=== PATIENT | female | born 1940 | race Caucasian/White ===

== ENCOUNTER 2018-01-29 20:34 | Inpatient (IN) ==
[2018-01-29] MEDS ORDERED: ONDANSETRON 4 MG/2 ML VIAL IV STA (22:33)
[2018-01-29] MEDS ORDERED: PANTOPRAZOLE 40 MG VIAL IV STA (22:33)
[2018-01-29] MEDS ORDERED: SODIUM CHLORIDE 0.9% 500 ML IV STA (22:33)
[2018-01-29] MEDS ORDERED: HYDROmorphone 2 MG/1 ML VIAL IV STA (22:33)
[2018-01-29 22:43] LABS: Basophils % 0.6 % (0.0-0.8); Eosinophils # 0.2 10*3/uL (0.0-0.87); Eosinophils % 5.8 % (0.00-10.9); Hematocrit 37.2 VOL% (35.7-47.0); Hemoglobin 12.1 GM/DL (12.0-16.0); Lymphocytes % 28.3 % (21.3-54.2); Mean Corpuscular HGB Conc 32.5 GM/DL (32-36); Mean Corpuscular Hemoglobin 29 PG (27-34); Mean Corpuscular Volume 88.6 FL (87-102); Monocytes # 0.3 10*3/uL (0.11-0.8); Monocytes % 9.1 % (1.7-12.7); Neutrophils % 56.2 % (38.7-73.9); Red Cell Distribution Width 15.6 % (9.3-17.3); White Blood Count 3.6 T/CUMM (4-12)
[2018-01-29 22:50] LABS: Platelet Count 65 T/CUMM (130-400)
[2018-01-29 23:00] LABS: Lactic Acid 1.1 MMOL/L (0.4-2.0)
[2018-01-29 23:01] LABS: Alanine Aminotransferase 23 U/L (13-56); Albumin 3.2 G/DL (3.4-5.0); Alkaline Phosphatase 95 U/L (45-117); Amylase 33 U/L (25-115); Aspartate Amino Transferase 32 U/L (0-37); Blood Urea Nitrogen 9 MG/DL (7-18); Calcium 9.2 MG/DL (8.5-10.1); Glucose 94 MG/DL (74-106); Osmolality,Calculated 279.3 MOS/KG (273-304); Potassium 4.2 MMOL/L (3.5-5.1); Sodium 141 MMOL/L (136-145); Troponin I 0.018 NG/ML (0.00-0.045)
[2018-01-29] MEDS ORDERED: MEPERIDINE 25 MG/1 ML VIAL IV STA (23:19)
[2018-01-29 23:24] LABS: Apearance,Urine Slightly Hazy (Clear); Bacteria,Urine Occasional /HPF (Few); Bilirubin,Urine Negative (Negative); Blood, Urine Moderate mg/dL (Negative); Glucose,Urine (UA) Negative (Negative); Ketones,Urine Negative (Negative); Nitrite,Urine Negative (Negative); Protein,Urine Negative; RBC,Urine 2 /HPF (0-4); Squamous Epithelial Cell,Urine Occasional /HPF (0-10); Urine Color Straw (Yellow); Urine Specific Gravity 1.003 (1.001-1.035); Urine Urobilinogen < 2.0 EU/DL (0.2-1.0); WBC,Urine 106 /HPF (0-6)
[2018-01-29] MEDS ORDERED: cefTRIAXone 1,000 MG in SODIUM CHLORIDE 0.9% 100 ML IV STA (23:42)
[2018-01-30] MEDS ORDERED: ceFAZolin 1,000 MG VIAL ONE (00:13)
[2018-01-30] MEDS ORDERED: GLUCAGON 1 MG VIAL IM PRN (02:35)
[2018-01-30] MEDS ORDERED: ACETAMINOPHEN 325 MG TABLET PO PRN (02:35)
[2018-01-30] MEDS ORDERED: ONDANSETRON 4 MG/2 ML VIAL IV PRN (02:35)
[2018-01-30] MEDS ORDERED: ALBUTEROL/IPRATROPIUM 3 ML NEB RESP TX PRN (02:35)
[2018-01-30] MEDS ORDERED: DEXTROSE 50% 25 GM/50 ML VIAL IV PRN (02:35)
[2018-01-30] MEDS ORDERED: HYDROmorphone 2 MG/1 ML VIAL IV PRN (02:35)
[2018-01-30] MEDS: SODIUM CHLORIDE 0.9% 1,000 ML IV SCH (02:56)
[2018-01-30] MEDS: PIPERACILLIN/TAZOBACTAM 3,375 MG in SODIUM CHLORIDE 0.9% 100 ML IV SCH ×3 (02:56→17:41)
[2018-01-30 02:57] LABS: Basophils % 0.3 % (0.0-0.8); Eosinophils # 0.2 10*3/uL (0.0-0.87); Eosinophils % 5.6 % (0.00-10.9); Hematocrit 33.8 VOL% (35.7-47.0); Hemoglobin 10.8 GM/DL (12.0-16.0); Lymphocytes # 0.9 10*3/uL (1.4-4.0); Lymphocytes % 27.8 % (21.3-54.2); Mean Corpuscular Hemoglobin 29 PG (27-34); Mean Corpuscular Volume 89.2 FL (87-102); Monocytes # 0.3 10*3/uL (0.11-0.8); Monocytes % 10.5 % (1.7-12.7); Neutrophils # 1.8 10*3/uL (1.4-7.4); Neutrophils % 55.8 % (38.7-73.9); Red Blood Count 3.79 MC/CUMM (3.8-5.5); Red Cell Distribution Width 15.9 % (9.3-17.3); White Blood Count 3.2 T/CUMM (4-12)
[2018-01-30 03:00] LABS: Platelet Count 55 T/CUMM (130-400)
[2018-01-30 03:13] LABS: Ammonia 27 UMOL/L (11-32)
[2018-01-30 04:41] LABS: Hypochromasia 1+; Microcytosis 1+; Ovalocytes Slight
[2018-01-30 04:42] LABS: Platelet Estimate Decreased
[2018-01-30] MEDS: INSULIN REGULAR 100 UNIT/ML SUBCUT SCH ×3 (06:00→18:05)
[2018-01-30 06:13] LABS: Potassium 4.1 MMOL/L (3.5-5.1)
[2018-01-30 06:15] LABS: Calcium 8.7 MG/DL (8.5-10.1)
[2018-01-30 06:16] LABS: Albumin 2.7 G/DL (3.4-5.0)
[2018-01-30 06:17] LABS: Osmolality,Calculated 278.4 MOS/KG (273-304)
[2018-01-30 06:20] LABS: VLDL CHOLESTEROL 11.8 MG/DL
[2018-01-30 06:21] LABS: Bilirubin,Total 1.3 MG/DL (0.2-1.0); Total Protein 6.2 G/DL (6.4-8.3)
[2018-01-30 06:24] LABS: Risk Ratio 2.07
[2018-01-30] MEDS ORDERED: traZODone 50 MG TABLET PO PRN (09:30)
[2018-01-30] MEDS ORDERED: CARVEDILOL 3.125 MG TABLET PO PRN (09:30)
[2018-01-30] MEDS ORDERED: NITROGLYCERIN SL 0.4 MG TABLET SL PRN (09:30)
[2018-01-30] MEDS: DOCUSATE SODIUM 100 MG CAPSULE PO SCH ×2 (09:40→21:28)
[2018-01-30] MEDS: PANTOPRAZOLE 40 MG VIAL IV SCH (09:40)
[2018-01-30] MEDS: FUROSEMIDE 20 MG/2 ML VIAL IV SCH ×2 (09:45→17:37)
[2018-01-30] MEDS ORDERED: GLIMEPIRIDE 2 MG TABLET PO PRN (10:00)
[2018-01-30] MEDS: SIMVASTATIN 40 MG TABLET PO SCH (21:28)
[2018-01-30] MEDS: GABAPENTIN 300 MG CAPSULE PO SCH (21:28)
[2018-01-30] MEDS: POTASSIUM CHLORIDE 20 MEQ TABLET PO SCH (21:28)
[2018-01-30] MEDS: clonazePAM 0.5 MG TABLET PO SCH (21:29)
[2018-01-30] MEDS: MAGNESIUM CHLORIDE 64 MG TABLET PO SCH (21:29)
[2018-01-30] MEDS: NYSTATIN OINT 15 GM TUBE TOP SCH (21:34)
[2018-01-31] MEDS: INSULIN REGULAR 100 UNIT/ML SUBCUT SCH ×4 (00:26→18:25)
[2018-01-31] MEDS: PIPERACILLIN/TAZOBACTAM 3,375 MG in SODIUM CHLORIDE 0.9% 100 ML IV SCH ×3 (01:48→17:21)
[2018-01-31 05:40] LABS: Apearance,Urine CLEAR (Clear); Bacteria,Urine Occasional /HPF (Few); Bilirubin,Urine Negative (Negative); Blood, Urine Moderate mg/dL (Negative); Glucose,Urine (UA) Negative (Negative); Ketones,Urine Negative (Negative); Mucus,Urine Occasional /LPF (Occasional); Nitrite,Urine Negative (Negative); Protein,Urine Negative; RBC,Urine 5 /HPF (0-4); Squamous Epithelial Cell,Urine Occasional /HPF (0-10); Urine Color Yellow (Yellow); Urine Specific Gravity 1.013 (1.001-1.035); Urine Urobilinogen < 2.0 EU/DL (0.2-1.0); WBC,Urine 21 /HPF (0-6)
[2018-01-31 07:38] LABS: Basophils % 0.6 % (0.0-0.8); Eosinophils # 0.2 10*3/uL (0.0-0.87); Eosinophils % 6.6 % (0.00-10.9); Hematocrit 36.9 VOL% (35.7-47.0); Hemoglobin 11.8 GM/DL (12.0-16.0); Immature Granulocytes % 0.3 %; Immature Granulocytes Absolute 0.01 #; Lymphocytes # 0.8 10*3/uL (1.4-4.0); Lymphocytes % 24.1 % (21.3-54.2); Mean Corpuscular Hemoglobin 28 PG (27-34); Mean Corpuscular Volume 87.9 FL (87-102); Mean Platelet Volume 12.8 FL (9.6-12.0); Monocytes # 0.3 10*3/uL (0.11-0.8); Monocytes % 10.8 % (1.7-12.7); Neutrophils # 1.8 10*3/uL (1.4-7.4); Neutrophils % 57.6 % (38.7-73.9); Platelet Count 61 T/CUMM (130-400); Red Cell Distribution Width 15.9 % (9.3-17.3); White Blood Count 3.2 T/CUMM (4-12)
[2018-01-31 08:00] LABS: Hypochromasia 1+; Ovalocytes Slight; Platelet Estimate Decreased
[2018-01-31 08:01] LABS: Microcytosis Slight
[2018-01-31] MEDS: SPIRONOLACTONE 25 MG TABLET PO SCH (09:14)
[2018-01-31] MEDS: LOSARTAN 25 MG TABLET PO SCH (09:14)
[2018-01-31] MEDS: ISOSORBIDE MONONITRATE 30 MG TABLET PO SCH (09:14)
[2018-01-31] MEDS: DOCUSATE SODIUM 100 MG CAPSULE PO SCH ×2 (09:14→21:32)
[2018-01-31] MEDS: POTASSIUM CHLORIDE 20 MEQ TABLET PO SCH ×2 (09:14→21:32)
[2018-01-31] MEDS: PANTOPRAZOLE 40 MG VIAL IV SCH (09:15)
[2018-01-31] MEDS: NYSTATIN OINT 15 GM TUBE TOP SCH ×2 (09:19→23:13)
[2018-01-31] MEDS: FUROSEMIDE 40 MG TABLET PO SCH (15:12)
[2018-01-31] MEDS: GABAPENTIN 300 MG CAPSULE PO SCH (21:32)
[2018-01-31] MEDS: SIMVASTATIN 40 MG TABLET PO SCH (21:32)
[2018-01-31] MEDS: clonazePAM 0.5 MG TABLET PO SCH (21:32)
[2018-01-31] MEDS: MAGNESIUM CHLORIDE 64 MG TABLET PO SCH (21:32)
[2018-02-01] MEDS: PIPERACILLIN/TAZOBACTAM 3,375 MG in SODIUM CHLORIDE 0.9% 100 ML IV SCH ×3 (01:56→17:48)
[2018-02-01] MEDS: INSULIN REGULAR 100 UNIT/ML SUBCUT SCH ×4 (01:57→17:18)
[2018-02-01 04:59] LABS: Basophils % 0.6 % (0.0-0.8); Eosinophils # 0.2 10*3/uL (0.0-0.87); Hemoglobin 11.1 GM/DL (12.0-16.0); Immature Granulocytes % 0.3 %; Immature Granulocytes Absolute 0.01 #; Lymphocytes # 0.8 10*3/uL (1.4-4.0); Lymphocytes % 23.9 % (21.3-54.2); Mean Corpuscular HGB Conc 31.7 GM/DL (32-36); Mean Corpuscular Hemoglobin 29 PG (27-34); Mean Corpuscular Volume 90.2 FL (87-102); Mean Platelet Volume 12.5 FL (9.6-12.0); Monocytes # 0.4 10*3/uL (0.11-0.8); Monocytes % 11.3 % (1.7-12.7); Neutrophils # 1.8 10*3/uL (1.4-7.4); Neutrophils % 57.9 % (38.7-73.9); Red Blood Count 3.88 MC/CUMM (3.8-5.5); Red Cell Distribution Width 15.8 % (9.3-17.3); White Blood Count 3.2 T/CUMM (4-12)
[2018-02-01 05:00] LABS: INR 1.4; PT Patient Result 14.2 SECS
[2018-02-01 05:02] LABS: Platelet Count 52 T/CUMM (130-400)
[2018-02-01 05:29] LABS: Acanthocytes 1+; Hypochromasia 1+; Ovalocytes Few; Platelet Estimate Decreased
[2018-02-01] MEDS ORDERED: SODIUM CHLORIDE 0.9% 1,000 ML IV PRN (07:24)
[2018-02-01] MEDS: SODIUM CHLORIDE 0.9% 1,000 ML IV SCH (08:06)
[2018-02-01] MEDS: LOSARTAN 25 MG TABLET PO SCH (08:28)
[2018-02-01] MEDS: SPIRONOLACTONE 25 MG TABLET PO SCH (08:28)
[2018-02-01] MEDS: POTASSIUM CHLORIDE 20 MEQ TABLET PO SCH ×2 (08:28→20:57)
[2018-02-01] MEDS: PANTOPRAZOLE 40 MG VIAL IV SCH (08:28)
[2018-02-01] MEDS: DOCUSATE SODIUM 100 MG CAPSULE PO SCH ×2 (08:28→20:57)
[2018-02-01] MEDS: ISOSORBIDE MONONITRATE 30 MG TABLET PO SCH (08:28)
[2018-02-01] MEDS: NYSTATIN OINT 15 GM TUBE TOP SCH ×2 (09:22→20:57)
[2018-02-01 09:50] LABS: Basophils % 0.6 % (0.0-0.8); Eosinophils # 0.2 10*3/uL (0.0-0.87); Hematocrit 36.6 VOL% (35.7-47.0); Hemoglobin 11.8 GM/DL (12.0-16.0); Lymphocytes # 0.9 10*3/uL (1.4-4.0); Lymphocytes % 26.7 % (21.3-54.2); Mean Corpuscular HGB Conc 32.2 GM/DL (32-36); Mean Corpuscular Hemoglobin 28 PG (27-34); Mean Corpuscular Volume 87.6 FL (87-102); Mean Platelet Volume 12.7 FL (9.6-12.0); Monocytes # 0.4 10*3/uL (0.11-0.8); Monocytes % 10.9 % (1.7-12.7); Neutrophils # 1.9 10*3/uL (1.4-7.4); Neutrophils % 54.8 % (38.7-73.9); Red Blood Count 4.18 MC/CUMM (3.8-5.5); Red Cell Distribution Width 15.9 % (9.3-17.3); White Blood Count 3.4 T/CUMM (4-12)
[2018-02-01 09:53] LABS: Platelet Count 55 T/CUMM (130-400)
[2018-02-01 10:35] LABS: Platelet Estimate Decreased
[2018-02-01] MEDS ORDERED: DIAZEPAM 5 MG TABLET PO ONE (11:00)
[2018-02-01] MEDS: FUROSEMIDE 40 MG TABLET PO SCH (15:36)
[2018-02-01] MEDS: clonazePAM 0.5 MG TABLET PO SCH (20:57)
[2018-02-01] MEDS: GABAPENTIN 300 MG CAPSULE PO SCH (20:57)
[2018-02-01] MEDS: MAGNESIUM CHLORIDE 64 MG TABLET PO SCH (20:57)
[2018-02-01] MEDS: SIMVASTATIN 40 MG TABLET PO SCH (20:57)
[2018-02-02] MEDS: INSULIN REGULAR 100 UNIT/ML SUBCUT SCH ×2 (02:20→06:33)
[2018-02-02] MEDS: PIPERACILLIN/TAZOBACTAM 3,375 MG in SODIUM CHLORIDE 0.9% 100 ML IV SCH ×2 (02:28→08:49)
[2018-02-02] MEDS: SPIRONOLACTONE 25 MG TABLET PO SCH (08:50)
[2018-02-02] MEDS: DOCUSATE SODIUM 100 MG CAPSULE PO SCH (08:50)
[2018-02-02] MEDS: PANTOPRAZOLE 40 MG VIAL IV SCH (08:50)
[2018-02-02] MEDS: LOSARTAN 25 MG TABLET PO SCH (08:51)
[2018-02-02] MEDS: ISOSORBIDE MONONITRATE 30 MG TABLET PO SCH (08:51)
[2018-02-02] MEDS: POTASSIUM CHLORIDE 20 MEQ TABLET PO SCH (08:51)
[2018-02-02 09:37] VITALS: BP 142/62
[2018-02-02] MEDS: NYSTATIN OINT 15 GM TUBE TOP SCH (12:48)
== END 2018-02-02 11:30 | disposition home or self-care (01) | DRG 394 ==
LOC: N.ED 20:34 → N.EDINP 01-30 01:43 → N.2E 01-30 02:08
PROVIDERS: ADMIT Family Medicine; ATTEND Family Medicine

== ENCOUNTER 2018-03-20 15:19 | Inpatient (IN) ==
[2018-03-20] MEDS ORDERED: DICYCLOMINE 20 MG/2 ML AMP IM ONE (16:07)
[2018-03-20] MEDS ORDERED: PANTOPRAZOLE 40 MG VIAL IV STA (16:07)
[2018-03-20] MEDS ORDERED: SODIUM CHLORIDE 0.9% 500 ML IV STA (16:07)
[2018-03-20] MEDS ORDERED: METOCLOPRAMIDE 10 MG/2 ML VIAL IV STA (16:07)
[2018-03-20 17:22] LABS: Basophils % 0.4 % (0.0-0.8); Eosinophils # 0.1 10*3/uL (0.0-0.87); Eosinophils % 5.9 % (0.00-10.9); Hematocrit 33.2 VOL% (35.7-47.0); Hemoglobin 10.6 GM/DL (12.0-16.0); Lymphocytes # 0.7 10*3/uL (1.4-4.0); Lymphocytes % 28.5 % (21.3-54.2); Mean Corpuscular HGB Conc 31.9 GM/DL (32-36); Mean Corpuscular Hemoglobin 29 PG (27-34); Monocytes # 0.3 10*3/uL (0.11-0.8); Monocytes % 10.5 % (1.7-12.7); Neutrophils # 1.3 10*3/uL (1.4-7.4); Neutrophils % 54.7 % (38.7-73.9); Platelet Count 48 T/CUMM (130-400); Red Blood Count 3.69 MC/CUMM (3.8-5.5); Red Cell Distribution Width 15.2 % (9.3-17.3); White Blood Count 2.4 T/CUMM (4-12)
[2018-03-20 17:27] LABS: Apearance,Urine CLEAR (Clear); Bilirubin,Urine Negative (Negative); Blood, Urine Small mg/dL (Negative); Glucose,Urine (UA) Negative (Negative); Ketones,Urine Negative (Negative); Nitrite,Urine Positive (Negative); Protein,Urine Negative; RBC,Urine 4 /HPF (0-4); Squamous Epithelial Cell,Urine Occasional /HPF (0-10); Urine Color Yellow (Yellow); Urine Specific Gravity 1.029 (1.001-1.035); WBC,Urine 10 /HPF (0-6)
[2018-03-20 17:31] LABS: INR 1.2; PT Patient Result 12.7 SECS; Partial Thromboplastin Time 27.2 SECS (0-40)
[2018-03-20 17:47] LABS: Alanine Aminotransferase 22 U/L (13-56); Albumin 2.8 G/DL (3.4-5.0); Alkaline Phosphatase 113 U/L (45-117); Aspartate Amino Transferase 28 U/L (0-37); Blood Urea Nitrogen 12 MG/DL (7-18); Calcium 8.7 MG/DL (8.5-10.1); Glucose 99 MG/DL (74-106); Osmolality,Calculated 276.5 MOS/KG (273-304); Potassium 4.4 MMOL/L (3.5-5.1); Sodium 139 MMOL/L (136-145); Total Protein 6.4 G/DL (6.4-8.3); Troponin I < 0.015 NG/ML (0.00-0.045)
[2018-03-20] MEDS ORDERED: AMPICILLIN/SULBACTAM 3,000 MG in SODIUM CHLORIDE 0.9% 100 ML IV STA (17:51)
[2018-03-20] MEDS ORDERED: ACETAMINOPHEN 325 MG TABLET PO PRN (19:47)
[2018-03-20] MEDS ORDERED: GLUCAGON 1 MG VIAL IM PRN (19:47)
[2018-03-20] MEDS ORDERED: ONDANSETRON 4 MG/2 ML VIAL IV PRN (19:47)
[2018-03-20] MEDS ORDERED: DEXTROSE 50% 25 GM/50 ML VIAL IV PRN (19:47)
[2018-03-20] MEDS: INSULIN REGULAR 100 UNIT/ML SUBCUT SCH (21:06)
[2018-03-20] MEDS: traZODone 50 MG TABLET PO SCH (21:06)
[2018-03-21 06:03] LABS: Basophils % 0.2 % (0.0-0.8); Eosinophils # 0.2 10*3/uL (0.0-0.87); Eosinophils % 5.4 % (0.00-10.9); Hematocrit 35.7 VOL% (35.7-47.0); Hemoglobin 11.2 GM/DL (12.0-16.0); Immature Granulocytes % 0.2 %; Immature Granulocytes Absolute 0.01 #; Lymphocytes # 0.7 10*3/uL (1.4-4.0); Lymphocytes % 18.1 % (21.3-54.2); Mean Corpuscular HGB Conc 31.4 GM/DL (32-36); Mean Corpuscular Hemoglobin 28 PG (27-34); Mean Corpuscular Volume 89.3 FL (87-102); Monocytes # 0.3 10*3/uL (0.11-0.8); Monocytes % 8.4 % (1.7-12.7); Neutrophils # 2.7 10*3/uL (1.4-7.4); Neutrophils % 67.7 % (38.7-73.9); Platelet Count 61 T/CUMM (130-400); Red Cell Distribution Width 15.2 % (9.3-17.3)
[2018-03-21 06:31] LABS: Osmolality,Calculated 279.3 MOS/KG (273-304); Potassium 4.3 MMOL/L (3.5-5.1)
[2018-03-21 06:37] LABS: Eosinophils 4 % (0-10); Hypochromasia 1+; Lymphocytes 14 % (20-55); Segmented Neutrophils 74 % (50-85); Total Cells Counted 100
[2018-03-21 06:38] LABS: Microcytosis 1+; Ovalocytes Slight; Platelet Estimate Decreased
[2018-03-21] MEDS ORDERED: CARVEDILOL 3.125 MG TABLET PO PRN (07:38)
[2018-03-21] MEDS ORDERED: NITROGLYCERIN SL 0.4 MG TABLET SL PRN (07:38)
[2018-03-21] MEDS ORDERED: GLIMEPIRIDE 2 MG TABLET PO PRN (07:38)
[2018-03-21] MEDS ORDERED: LACTULOSE 20 GM/30 ML UDCUP PO PRN (07:42)
[2018-03-21] MEDS: MULTIVITAMIN (CENTRUM) TABLET PO SCH (08:45)
[2018-03-21] MEDS: SPIRONOLACTONE 25 MG TABLET PO SCH (08:46)
[2018-03-21] MEDS: PANTOPRAZOLE 40 MG TABLET PO SCH (08:47)
[2018-03-21] MEDS: GLIMEPIRIDE 2 MG TABLET PO SCH (08:47)
[2018-03-21] MEDS: LOSARTAN 25 MG TABLET PO SCH (08:47)
[2018-03-21] MEDS: ISOSORBIDE MONONITRATE 30 MG TABLET PO SCH (08:47)
[2018-03-21] MEDS: POTASSIUM CHLORIDE 20 MEQ TABLET PO SCH ×2 (08:47→21:21)
[2018-03-21] MEDS: INSULIN REGULAR 100 UNIT/ML SUBCUT SCH ×4 (08:47→21:21)
[2018-03-21] MEDS ORDERED: FUROSEMIDE 40 MG TABLET PO SCH (13:00)
[2018-03-21] MEDS ORDERED: cefTRIAXone 1,000 MG in SYRINGE 1 EACH IV SCH (16:00)
[2018-03-21] MEDS ORDERED: GABAPENTIN 300 MG CAPSULE PO SCH (21:00)
[2018-03-21] MEDS ORDERED: clonazePAM 0.5 MG TABLET PO SCH (21:00)
[2018-03-21] MEDS ORDERED: MAGNESIUM CHLORIDE 64 MG TABLET PO SCH (21:00)
[2018-03-21] MEDS: traZODone 50 MG TABLET PO SCH (21:21)
[2018-03-22 08:02] VITALS: BP 155/63
[2018-03-22] MEDS: PANTOPRAZOLE 40 MG TABLET PO SCH (08:44)
[2018-03-22] MEDS: MULTIVITAMIN (CENTRUM) TABLET PO SCH (08:44)
[2018-03-22] MEDS: POTASSIUM CHLORIDE 20 MEQ TABLET PO SCH (08:44)
[2018-03-22] MEDS: ISOSORBIDE MONONITRATE 30 MG TABLET PO SCH (08:44)
[2018-03-22] MEDS: LOSARTAN 25 MG TABLET PO SCH (08:44)
[2018-03-22] MEDS: INSULIN REGULAR 100 UNIT/ML SUBCUT SCH (08:45)
[2018-03-22] MEDS: SPIRONOLACTONE 25 MG TABLET PO SCH (08:45)
[2018-03-22] MEDS: GLIMEPIRIDE 2 MG TABLET PO SCH (08:45)
== END 2018-03-22 10:50 | disposition home or self-care (01) | DRG 378 ==
LOC: N.ED 15:19 → N.EDINP 18:11 → N.5E 19:21
PROVIDERS: ADMIT Family Medicine; ATTEND Family Medicine

== ENCOUNTER 2018-06-07 13:29 | Inpatient (IN) ==
[2018-06-07] MEDS ORDERED: ONDANSETRON 4 MG/2 ML VIAL IV STA (13:51)
[2018-06-07] MEDS ORDERED: HYDROmorphone 2 MG/1 ML VIAL IV STA (13:51)
[2018-06-07 13:58] LABS: Basophils % 0.3 % (0.0-0.8); Eosinophils # 0.1 10*3/uL (0.0-0.87); Eosinophils % 2.1 % (0.00-10.9); Hematocrit 31.5 VOL% (35.7-47.0); Hemoglobin 9.9 GM/DL (12.0-16.0); Immature Granulocytes % 0.7 %; Immature Granulocytes Absolute 0.02 #; Lymphocytes # 0.5 10*3/uL (1.4-4.0); Lymphocytes % 15.8 % (21.3-54.2); Mean Corpuscular HGB Conc 31.4 GM/DL (32-36); Mean Corpuscular Hemoglobin 27 PG (27-34); Mean Corpuscular Volume 87.3 FL (87-102); Mean Platelet Volume 12.3 FL (9.6-12.0); Monocytes # 0.2 10*3/uL (0.11-0.8); Monocytes % 6.9 % (1.7-12.7); Neutrophils # 2.2 10*3/uL (1.4-7.4); Neutrophils % 74.2 % (38.7-73.9); Platelet Count 71 T/CUMM (130-400); Red Blood Count 3.61 MC/CUMM (3.8-5.5); Red Cell Distribution Width 15.1 % (9.3-17.3); White Blood Count 2.9 T/CUMM (4-12)
[2018-06-07 14:03] LABS: INR 1.2; PT Patient Result 12.9 SECS
[2018-06-07 14:15] LABS: Albumin 3.1 G/DL (3.4-5.0); Bilirubin,Total 0.9 MG/DL (0.2-1.0); Calcium 9.1 MG/DL (8.5-10.1); Osmolality,Calculated 268.4 MOS/KG (273-304); Potassium 4.9 MMOL/L (3.5-5.1); Total Protein 6.7 G/DL (6.4-8.3)
[2018-06-07] MEDS ORDERED: PROMETHAZINE 25 MG/1 ML VIAL IM STA (15:00)
[2018-06-07 15:24] LABS: Apearance,Urine CLEAR (Clear); Bacteria,Urine Occasional /HPF (Few); Bilirubin,Urine Negative (Negative); Blood, Urine Small mg/dL (Negative); Glucose,Urine (UA) Negative (Negative); Hyaline Casts,Urine 1 /LPF (0-3); Ketones,Urine 5 mg/dL (Negative); Mucus,Urine Occasional /LPF (Occasional); Nitrite,Urine Negative (Negative); Protein,Urine 30 MG/DL; RBC,Urine 5 /HPF (0-4); Squamous Epithelial Cell,Urine Occasional /HPF (0-10); Urine Color Yellow (Yellow); Urine Specific Gravity 1.018 (1.001-1.035); WBC,Urine 2 /HPF (0-6)
[2018-06-07 15:30] LABS: Anisocytosis Slight; Hypochromasia 1+
[2018-06-07 15:31] LABS: Microcytosis Slight; Platelet Estimate Decreased
[2018-06-07] MEDS ORDERED: HYDROmorphone 2 MG/1 ML VIAL IV PRN (16:30)
[2018-06-07] MEDS ORDERED: GLUCAGON 1 MG VIAL IM PRN (16:30)
[2018-06-07] MEDS ORDERED: ACETAMINOPHEN 325 MG TABLET PO PRN (16:30)
[2018-06-07] MEDS ORDERED: DEXTROSE 50% 25 GM/50 ML SYRINGE IV PRN (16:30)
[2018-06-07] MEDS ORDERED: CARVEDILOL 3.125 MG TABLET PO PRN (17:34)
[2018-06-07] MEDS ORDERED: NITROGLYCERIN SL 0.4 MG TABLET SL PRN (17:34)
[2018-06-07] MEDS ORDERED: GLIMEPIRIDE 2 MG TABLET PO PRN (17:34)
[2018-06-07] MEDS: SODIUM CHLORIDE 0.9% 1,000 ML IV SCH (17:42)
[2018-06-07] MEDS: INSULIN REGULAR 100 UNIT/ML SUBCUT SCH (18:37)
[2018-06-07] MEDS: DOCUSATE SODIUM 100 MG CAPSULE PO SCH (21:35)
[2018-06-07] MEDS: MAGNESIUM CHLORIDE 64 MG TABLET PO SCH (21:36)
[2018-06-07] MEDS: traZODone 50 MG TABLET PO SCH (21:36)
[2018-06-07] MEDS: POTASSIUM CHLORIDE 20 MEQ TABLET PO SCH (21:37)
[2018-06-07] MEDS: GABAPENTIN 300 MG CAPSULE PO SCH (21:37)
[2018-06-08] MEDS: INSULIN REGULAR 100 UNIT/ML SUBCUT SCH ×4 (00:37→18:34)
[2018-06-08 05:12] LABS: Basophils % 0.2 % (0.0-0.8); Eosinophils # 0.1 10*3/uL (0.0-0.87); Eosinophils % 1.9 % (0.00-10.9); Hematocrit 31.1 VOL% (35.7-47.0); Hemoglobin 9.4 GM/DL (12.0-16.0); Lymphocytes # 0.7 10*3/uL (1.4-4.0); Lymphocytes % 17.2 % (21.3-54.2); Mean Corpuscular HGB Conc 30.2 GM/DL (32-36); Mean Corpuscular Hemoglobin 27 PG (27-34); Mean Corpuscular Volume 90.1 FL (87-102); Mean Platelet Volume 11.9 FL (9.6-12.0); Monocytes # 0.5 10*3/uL (0.11-0.8); Monocytes % 11.9 % (1.7-12.7); Neutrophils # 2.9 10*3/uL (1.4-7.4); Neutrophils % 68.8 % (38.7-73.9); Red Blood Count 3.45 MC/CUMM (3.8-5.5); Red Cell Distribution Width 14.9 % (9.3-17.3)
[2018-06-08 05:18] LABS: Platelet Count 68 T/CUMM (130-400); White Blood Count 4.2 T/CUMM (4-12)
[2018-06-08 05:23] LABS: Albumin 2.8 G/DL (3.4-5.0); Bilirubin,Total 1.1 MG/DL (0.2-1.0); Calcium 8.6 MG/DL (8.5-10.1); Osmolality,Calculated 267.4 MOS/KG (273-304); Total Protein 6.1 G/DL (6.4-8.3)
[2018-06-08 05:32] LABS: Hypochromasia 1+; Microcytosis Slight; Ovalocytes Slight; Platelet Estimate Decreased
[2018-06-08] MEDS: SODIUM CHLORIDE 0.9% 1,000 ML IV SCH (06:13)
[2018-06-08] MEDS ORDERED: ceFAZolin 2,000 MG in PREMIX 1 EACH IV ONE (07:00)
[2018-06-08] MEDS: ISOSORBIDE MONONITRATE 30 MG TABLET PO SCH (08:14)
[2018-06-08] MEDS: LOSARTAN 25 MG TABLET PO SCH (08:14)
[2018-06-08] MEDS ORDERED: BACITRACIN OINT 0.9 GM PACK TOP ONE (08:27)
[2018-06-08] MEDS ORDERED: PANTOPRAZOLE 40 MG VIAL IV SCH (09:00)
[2018-06-08] MEDS: MULTIVITAMIN (CENTRUM) TABLET PO SCH (09:38)
[2018-06-08] MEDS: SPIRONOLACTONE 25 MG TABLET PO SCH (09:38)
[2018-06-08] MEDS: DOCUSATE SODIUM 100 MG CAPSULE PO SCH ×2 (09:38→21:33)
[2018-06-08] MEDS: POTASSIUM CHLORIDE 20 MEQ TABLET PO SCH ×2 (09:39→21:32)
[2018-06-08] MEDS: PANTOPRAZOLE 40 MG TABLET PO SCH ×2 (09:39→15:31)
[2018-06-08] MEDS ORDERED: ePHEDrine 50 MG/ML AMP ONE (12:16)
[2018-06-08] MEDS ORDERED: fentaNYL 100 MCG/2 ML VIAL ONE (12:16)
[2018-06-08] MEDS ORDERED: oxyCODONE IR 5 MG TABLET PO PRN (12:31)
[2018-06-08] MEDS ORDERED: MAGNESIUM HYDROXIDE SUSP 30 ML UDCUP PO PRN (12:31)
[2018-06-08] MEDS ORDERED: GLYCOPYRROLATE 0.4 MG/2 ML VIAL ONE (13:00)
[2018-06-08] MEDS ORDERED: PROPOFOL 200 MG/20 ML VIAL IV ONE (13:00)
[2018-06-08] MEDS ORDERED: SEVOFLURANE 1 UNIT/15 MINUTE INH ONE (13:00)
[2018-06-08] MEDS ORDERED: ONDANSETRON 4 MG/2 ML VIAL ONE ×2 (13:00→13:22)
[2018-06-08] MEDS ORDERED: PHENYLEPHRINE 1 MG/10 ML SYRINGE IV ONE (13:01)
[2018-06-08] MEDS ORDERED: ROCURONIUM 100 MG/10 ML VIAL IV ONE (13:01)
[2018-06-08] MEDS ORDERED: NEOSTIGMINE 10 MG/10 ML VIAL ONE (13:01)
[2018-06-08] MEDS ORDERED: SODIUM CHLORIDE 0.9% 1,000 ML IV ONE (13:01)
[2018-06-08] MEDS: ONDANSETRON 4 MG/2 ML VIAL IV PRN (13:24)
[2018-06-08] MEDS: FUROSEMIDE 20 MG TABLET PO SCH (13:47)
[2018-06-08] MEDS: ALUMINUM/MAGNES/SIMETH MAX STR 30 ML UDCUP PO PRN (16:23)
[2018-06-08] MEDS: ceFAZolin 2,000 MG in PREMIX 1 EACH IV SCH (17:25)
[2018-06-08] MEDS ORDERED: ASPIRIN EC 81 MG TABLET PO SCH (17:34)
[2018-06-08] MEDS: MAGNESIUM CHLORIDE 64 MG TABLET PO SCH (21:32)
[2018-06-08] MEDS: GABAPENTIN 300 MG CAPSULE PO SCH (21:33)
[2018-06-08] MEDS: traZODone 50 MG TABLET PO SCH (21:33)
[2018-06-09] MEDS: ALUMINUM/MAGNES/SIMETH MAX STR 30 ML UDCUP PO PRN (00:12)
[2018-06-09] MEDS: ONDANSETRON 4 MG/2 ML VIAL IV PRN ×2 (00:15→05:17)
[2018-06-09] MEDS: ceFAZolin 2,000 MG in PREMIX 1 EACH IV SCH (00:17)
[2018-06-09] MEDS: INSULIN REGULAR 100 UNIT/ML SUBCUT SCH ×4 (00:17→18:22)
[2018-06-09 06:45] LABS: Basophils % 0.2 % (0.0-0.8); Eosinophils # 0.1 10*3/uL (0.0-0.87); Hematocrit 28.5 VOL% (35.7-47.0); Hemoglobin 8.7 GM/DL (12.0-16.0); Immature Granulocytes % 0.5 %; Immature Granulocytes Absolute 0.03 #; Lymphocytes # 0.6 10*3/uL (1.4-4.0); Lymphocytes % 9.8 % (21.3-54.2); Mean Corpuscular HGB Conc 30.5 GM/DL (32-36); Mean Corpuscular Hemoglobin 27 PG (27-34); Mean Corpuscular Volume 89.6 FL (87-102); Mean Platelet Volume 12.1 FL (9.6-12.0); Monocytes # 0.7 10*3/uL (0.11-0.8); Monocytes % 11.7 % (1.7-12.7); Neutrophils # 4.5 10*3/uL (1.4-7.4); Neutrophils % 76.8 % (38.7-73.9); Platelet Count 74 T/CUMM (130-400); Red Blood Count 3.18 MC/CUMM (3.8-5.5); Red Cell Distribution Width 14.9 % (9.3-17.3); White Blood Count 5.8 T/CUMM (4-12)
[2018-06-09 07:13] LABS: Calcium 7.9 MG/DL (8.5-10.1); Potassium 4.6 MMOL/L (3.5-5.1)
[2018-06-09] MEDS: DOCUSATE SODIUM 100 MG CAPSULE PO SCH ×2 (08:26→21:59)
[2018-06-09] MEDS: SPIRONOLACTONE 25 MG TABLET PO SCH (08:26)
[2018-06-09] MEDS: POTASSIUM CHLORIDE 20 MEQ TABLET PO SCH ×2 (08:26→21:59)
[2018-06-09] MEDS: LOSARTAN 25 MG TABLET PO SCH (08:26)
[2018-06-09] MEDS: ISOSORBIDE MONONITRATE 30 MG TABLET PO SCH (08:26)
[2018-06-09] MEDS: MULTIVITAMIN (CENTRUM) TABLET PO SCH (08:26)
[2018-06-09] MEDS: PANTOPRAZOLE 40 MG TABLET PO SCH (08:27)
[2018-06-09 10:03] LABS: Eosinophils 1 % (0-10); Lymphocytes 8 % (20-55); Platelet Estimate Decreased; Polychromasia Slight; Segmented Neutrophils 86 % (50-85); Total Cells Counted 100
[2018-06-09] MEDS: FUROSEMIDE 20 MG TABLET PO SCH (13:19)
[2018-06-09] MEDS: GABAPENTIN 300 MG CAPSULE PO SCH (21:58)
[2018-06-09] MEDS: MAGNESIUM CHLORIDE 64 MG TABLET PO SCH (21:59)
[2018-06-09] MEDS: traZODone 50 MG TABLET PO SCH (21:59)
[2018-06-09] MEDS: oxyCODONE IR 5 MG TABLET PO PRN (21:59)
[2018-06-10] MEDS: INSULIN REGULAR 100 UNIT/ML SUBCUT SCH ×4 (00:14→18:26)
[2018-06-10] MEDS: SODIUM CHLORIDE 0.9% 1,000 ML IV SCH ×2 (03:05→03:28)
[2018-06-10 07:15] LABS: Basophils % 0.2 % (0.0-0.8); Eosinophils # 0.2 10*3/uL (0.0-0.87); Eosinophils % 3.8 % (0.00-10.9); Hematocrit 26.7 VOL% (35.7-47.0); Hemoglobin 8.1 GM/DL (12.0-16.0); Immature Granulocytes % 0.3 %; Immature Granulocytes Absolute 0.02 #; Lymphocytes # 0.7 10*3/uL (1.4-4.0); Lymphocytes % 12.6 % (21.3-54.2); Mean Corpuscular HGB Conc 30.3 GM/DL (32-36); Mean Corpuscular Hemoglobin 27 PG (27-34); Mean Corpuscular Volume 89.6 FL (87-102); Mean Platelet Volume 11.9 FL (9.6-12.0); Monocytes # 0.4 10*3/uL (0.11-0.8); Monocytes % 7.6 % (1.7-12.7); Neutrophils # 4.4 10*3/uL (1.4-7.4); Neutrophils % 75.5 % (38.7-73.9); Red Blood Count 2.98 MC/CUMM (3.8-5.5); Red Cell Distribution Width 15.3 % (9.3-17.3); White Blood Count 5.8 T/CUMM (4-12)
[2018-06-10 07:18] LABS: Platelet Count 72 T/CUMM (130-400)
[2018-06-10] MEDS ORDERED: BENZOCAINE/MENTHOL LOZENGE 18/BOX PO PRN (07:34)
[2018-06-10 07:35] LABS: Calcium 7.7 MG/DL (8.5-10.1); Osmolality,Calculated 267.5 MOS/KG (273-304); Potassium 5.5 MMOL/L (3.5-5.1)
[2018-06-10] MEDS: DOCUSATE SODIUM 100 MG CAPSULE PO SCH ×2 (08:53→21:24)
[2018-06-10] MEDS: MULTIVITAMIN (CENTRUM) TABLET PO SCH (08:53)
[2018-06-10] MEDS: SPIRONOLACTONE 25 MG TABLET PO SCH (08:53)
[2018-06-10] MEDS: LOSARTAN 25 MG TABLET PO SCH (08:53)
[2018-06-10] MEDS: ISOSORBIDE MONONITRATE 30 MG TABLET PO SCH (08:53)
[2018-06-10] MEDS: POTASSIUM CHLORIDE 20 MEQ TABLET PO SCH (08:54)
[2018-06-10] MEDS: PANTOPRAZOLE 40 MG TABLET PO SCH (08:54)
[2018-06-10] MEDS: ONDANSETRON 4 MG/2 ML VIAL IV PRN (13:42)
[2018-06-10] MEDS: oxyCODONE IR 5 MG TABLET PO PRN (13:42)
[2018-06-10] MEDS: FUROSEMIDE 20 MG TABLET PO SCH (14:55)
[2018-06-10] MEDS: MAGNESIUM CHLORIDE 64 MG TABLET PO SCH (21:23)
[2018-06-10] MEDS: GABAPENTIN 300 MG CAPSULE PO SCH (21:24)
[2018-06-10] MEDS: traZODone 50 MG TABLET PO SCH (21:24)
[2018-06-10] MEDS ORDERED: SODIUM CHLORIDE 0.9% 1,000 ML IV PRN (22:05)
[2018-06-11] MEDS: INSULIN REGULAR 100 UNIT/ML SUBCUT SCH ×4 (01:22→19:00)
[2018-06-11] MEDS: MULTIVITAMIN (CENTRUM) TABLET PO SCH (09:49)
[2018-06-11] MEDS: ISOSORBIDE MONONITRATE 30 MG TABLET PO SCH (09:50)
[2018-06-11] MEDS: PANTOPRAZOLE 40 MG TABLET PO SCH (09:50)
[2018-06-11] MEDS: LOSARTAN 25 MG TABLET PO SCH (09:50)
[2018-06-11] MEDS: DOCUSATE SODIUM 100 MG CAPSULE PO SCH ×2 (09:50→20:52)
[2018-06-11 10:34] LABS: Basophils % 0.3 % (0.0-0.8); Eosinophils # 0.3 10*3/uL (0.0-0.87); Eosinophils % 4.2 % (0.00-10.9); Hematocrit 34.1 VOL% (35.7-47.0); Immature Granulocytes % 0.5 %; Immature Granulocytes Absolute 0.03 #; Lymphocytes # 0.7 10*3/uL (1.4-4.0); Lymphocytes % 10.8 % (21.3-54.2); Mean Corpuscular HGB Conc 30.5 GM/DL (32-36); Mean Corpuscular Hemoglobin 27 PG (27-34); Mean Corpuscular Volume 89.5 FL (87-102); Mean Platelet Volume 11.6 FL (9.6-12.0); Monocytes # 0.7 10*3/uL (0.11-0.8); Monocytes % 11.1 % (1.7-12.7); Neutrophils # 4.7 10*3/uL (1.4-7.4); Neutrophils % 73.1 % (38.7-73.9); Red Cell Distribution Width 15.7 % (9.3-17.3); White Blood Count 6.4 T/CUMM (4-12)
[2018-06-11 10:38] LABS: Red Blood Count 3.81 MC/CUMM (3.8-5.5)
[2018-06-11 10:39] LABS: Hemoglobin 10.4 GM/DL (12.0-16.0); Platelet Count 83 T/CUMM (130-400)
[2018-06-11 10:51] LABS: Hypochromasia 1+; Platelet Estimate Decreased
[2018-06-11 10:58] LABS: Calcium 8.1 MG/DL (8.5-10.1); Osmolality,Calculated 268.8 MOS/KG (273-304); Potassium 5.6 MMOL/L (3.5-5.1)
[2018-06-11] MEDS: FUROSEMIDE 20 MG TABLET PO SCH (13:27)
[2018-06-11] MEDS: ONDANSETRON 4 MG/2 ML VIAL IV PRN (14:10)
[2018-06-11] MEDS: oxyCODONE IR 5 MG TABLET PO PRN (14:10)
[2018-06-11] MEDS: GABAPENTIN 300 MG CAPSULE PO SCH (20:52)
[2018-06-11] MEDS: traZODone 50 MG TABLET PO SCH (20:52)
[2018-06-11] MEDS: MAGNESIUM CHLORIDE 64 MG TABLET PO SCH (20:52)
[2018-06-12] MEDS: INSULIN REGULAR 100 UNIT/ML SUBCUT SCH ×3 (00:33→12:00)
[2018-06-12] MEDS: LOSARTAN 25 MG TABLET PO SCH (09:38)
[2018-06-12] MEDS: DOCUSATE SODIUM 100 MG CAPSULE PO SCH (09:39)
[2018-06-12] MEDS: MULTIVITAMIN (CENTRUM) TABLET PO SCH (09:39)
[2018-06-12] MEDS: PANTOPRAZOLE 40 MG TABLET PO SCH (09:39)
[2018-06-12] MEDS: ISOSORBIDE MONONITRATE 30 MG TABLET PO SCH (09:39)
[2018-06-12 11:25] VITALS: BP 125/61
== END 2018-06-12 13:15 | disposition swing bed (61) | DRG 482 ==
LOC: EDUNIT# → EDBD → N.ED 13:29 → N.EDINP 14:40 → N.3E 15:46
PROVIDERS: ADMIT Family Medicine; ATTEND Family Medicine

== ENCOUNTER 2018-06-28 09:45 | Inpatient (IN) ==
[2018-06-28] MEDS ORDERED: FUROSEMIDE 100 MG/10 ML VIAL IV STA (09:59)
[2018-06-28] MEDS ORDERED: FUROSEMIDE 20 MG/2 ML VIAL ONE (10:18)
[2018-06-28] MEDS ORDERED: FUROSEMIDE 40 MG/4 ML VIAL ONE (10:18)
[2018-06-28 11:03] LABS: Apearance,Urine CLOUDY (Clear); Bacteria,Urine Many /HPF (Few); Bilirubin,Urine Negative (Negative); Blood, Urine Moderate mg/dL (Negative); Glucose,Urine (UA) Negative (Negative); Hyaline Casts,Urine 3 /LPF (0-3); Ketones,Urine 5 mg/dL (Negative); Mucus,Urine Occasional /LPF (Occasional); Nitrite,Urine Negative (Negative); Protein,Urine 30 MG/DL; Squamous Epithelial Cell,Urine Occasional /HPF (0-10); Urine Color Amber (Yellow); WBC,Urine 152 /HPF (0-6)
[2018-06-28 11:05] LABS: INR 1.2; PT Patient Result 12.6 SECS; Partial Thromboplastin Time 23.6 SECS (0-40)
[2018-06-28 11:26] LABS: Basophils % 0.1 % (0.0-0.8); Eosinophils % 0.1 % (0.00-10.9); Hemoglobin 9.6 GM/DL (12.0-16.0); Immature Granulocytes % 0.3 %; Immature Granulocytes Absolute 0.02 #; Lymphocytes # 0.2 10*3/uL (1.4-4.0); Lymphocytes % 3.1 % (21.3-54.2); Mean Corpuscular Hemoglobin 28 PG (27-34); Mean Corpuscular Volume 88.8 FL (87-102); Mean Platelet Volume 10.7 FL (9.6-12.0); Monocytes # 0.6 10*3/uL (0.11-0.8); Monocytes % 7.6 % (1.7-12.7); Neutrophils # 6.7 10*3/uL (1.4-7.4); Neutrophils % 88.8 % (38.7-73.9); Platelet Count 121 T/CUMM (130-400); Red Blood Count 3.49 MC/CUMM (3.8-5.5); Red Cell Distribution Width 17.1 % (9.3-17.3); White Blood Count 7.5 T/CUMM (4-12)
[2018-06-28 11:33] LABS: Albumin 2.2 G/DL (3.4-5.0); Bilirubin,Total 1.6 MG/DL (0.2-1.0); Calcium 7.9 MG/DL (8.5-10.1); Osmolality,Calculated 265.9 MOS/KG (273-304); Potassium 5.2 MMOL/L (3.5-5.1); Total Protein 6.3 G/DL (6.4-8.3)
[2018-06-28 11:45] LABS: Hypochromasia 1+; Lymphocytes 3 % (20-55); Platelet Estimate Normal; Segmented Neutrophils 91 % (50-85); Total Cells Counted 100
[2018-06-28] MEDS ORDERED: CEFTAROLINE 600 MG in SODIUM CHLORIDE 0.9% 100 ML IV STA (12:42)
[2018-06-28] MEDS ORDERED: NITROGLYCERIN SL 0.4 MG TABLET SL PRN (12:48)
[2018-06-28] MEDS ORDERED: MAGNESIUM HYDROXIDE SUSP 30 ML UDCUP PO PRN (12:48)
[2018-06-28] MEDS ORDERED: oxyCODONE IR 5 MG TABLET PO PRN (12:48)
[2018-06-28] MEDS ORDERED: GLIMEPIRIDE 2 MG TABLET PO PRN (12:48)
[2018-06-28] MEDS ORDERED: DOCUSATE SODIUM 100 MG CAPSULE PO SCH (21:00)
[2018-06-28] MEDS: DOCUSATE SODIUM 100 MG CAPSULE PO SCH (21:47)
[2018-06-29 05:48] LABS: Basophils % 0.2 % (0.0-0.8); Eosinophils % 0.4 % (0.00-10.9); Hemoglobin 9.8 GM/DL (12.0-16.0); Immature Granulocytes % 0.6 %; Immature Granulocytes Absolute 0.03 #; Lymphocytes # 0.4 10*3/uL (1.4-4.0); Lymphocytes % 8.7 % (21.3-54.2); Mean Corpuscular HGB Conc 30.6 GM/DL (32-36); Mean Corpuscular Hemoglobin 27 PG (27-34); Mean Corpuscular Volume 89.1 FL (87-102); Mean Platelet Volume 11.7 FL (9.6-12.0); Monocytes # 0.5 10*3/uL (0.11-0.8); Monocytes % 10.8 % (1.7-12.7); Neutrophils # 3.9 10*3/uL (1.4-7.4); Neutrophils % 79.3 % (38.7-73.9); Red Blood Count 3.59 MC/CUMM (3.8-5.5); Red Cell Distribution Width 17.1 % (9.3-17.3); White Blood Count 4.9 T/CUMM (4-12)
[2018-06-29 05:56] LABS: Platelet Count 95 T/CUMM (130-400)
[2018-06-29 06:06] LABS: Hypochromasia 1+; Ovalocytes Slight; Platelet Estimate Decreased
[2018-06-29] MEDS ORDERED: ASPIRIN CHEW 81 MG TABLET PO ONE (07:39)
[2018-06-29 08:46] LABS: Troponin I 0.158 NG/ML (0.00-0.045)
[2018-06-29] MEDS ORDERED: BENZOCAINE/MENTHOL LOZENGE 18/BOX PO PRN (09:24)
[2018-06-29] MEDS ORDERED: DEXTROSE 50% 25 GM/50 ML SYRINGE IV PRN (09:24)
[2018-06-29] MEDS ORDERED: ALUMINUM/MAGNES/SIMETH MAX STR 30 ML UDCUP PO PRN (09:24)
[2018-06-29] MEDS ORDERED: CARVEDILOL 3.125 MG TABLET PO PRN (09:24)
[2018-06-29] MEDS ORDERED: GLUCAGON 1 MG VIAL IM PRN (09:24)
[2018-06-29] MEDS: ASPIRIN EC 81 MG TABLET PO SCH (10:31)
[2018-06-29] MEDS: POLYETHYLENE GLYCOL POWDER 17 GM PACK PO SCH (10:31)
[2018-06-29] MEDS: DOCUSATE SODIUM 100 MG CAPSULE PO SCH ×2 (10:31→21:28)
[2018-06-29 11:37] LABS: Troponin I 0.149 NG/ML (0.00-0.045)
[2018-06-29] MEDS: CARVEDILOL 3.125 MG TABLET PO SCH ×2 (12:59→21:29)
[2018-06-29] MEDS: INSULIN REGULAR 100 UNIT/ML SUBCUT SCH ×2 (13:14→18:35)
[2018-06-29 15:18] LABS: Troponin I 0.159 NG/ML (0.00-0.045)
[2018-06-29] MEDS: ACETAMINOPHEN 325 MG TABLET PO PRN (16:21)
[2018-06-29] MEDS: FUROSEMIDE 40 MG/4 ML VIAL IV SCH (16:22)
[2018-06-29 17:42] LABS: Troponin I 0.165 NG/ML (0.00-0.045)
[2018-06-29] MEDS: CEFTAROLINE 600 MG in SODIUM CHLORIDE 0.9% 100 ML IV SCH (18:35)
[2018-06-29] MEDS: NYSTATIN POWDER 15 GM BOTTLE TOP SCH (21:27)
[2018-06-29] MEDS: traZODone 50 MG TABLET PO SCH (21:28)
[2018-06-29] MEDS: MAGNESIUM CHLORIDE 64 MG TABLET PO SCH (21:29)
[2018-06-29] MEDS: GABAPENTIN 300 MG CAPSULE PO SCH (21:29)
[2018-06-30] MEDS: INSULIN REGULAR 100 UNIT/ML SUBCUT SCH ×4 (01:30→19:00)
[2018-06-30 04:40] LABS: Basophils % 0.3 % (0.0-0.8); Eosinophils % 0.9 % (0.00-10.9); Hemoglobin 9.3 GM/DL (12.0-16.0); Immature Granulocytes % 0.3 %; Immature Granulocytes Absolute 0.01 #; Lymphocytes # 0.6 10*3/uL (1.4-4.0); Mean Corpuscular Hemoglobin 27 PG (27-34); Mean Corpuscular Volume 89.9 FL (87-102); Mean Platelet Volume 11.2 FL (9.6-12.0); Monocytes # 0.5 10*3/uL (0.11-0.8); Monocytes % 13.7 % (1.7-12.7); Neutrophils # 2.4 10*3/uL (1.4-7.4); Neutrophils % 68.8 % (38.7-73.9); Platelet Count 102 T/CUMM (130-400); Red Blood Count 3.45 MC/CUMM (3.8-5.5); White Blood Count 3.4 T/CUMM (4-12)
[2018-06-30 05:02] LABS: Calcium 7.8 MG/DL (8.5-10.1); Osmolality,Calculated 273.1 MOS/KG (273-304); Potassium 4.1 MMOL/L (3.5-5.1)
[2018-06-30] MEDS: CEFTAROLINE 600 MG in SODIUM CHLORIDE 0.9% 100 ML IV SCH ×2 (07:24→17:20)
[2018-06-30] MEDS: DOCUSATE SODIUM 100 MG CAPSULE PO SCH ×2 (09:04→21:02)
[2018-06-30] MEDS: POLYETHYLENE GLYCOL POWDER 17 GM PACK PO SCH (09:04)
[2018-06-30] MEDS: LOSARTAN 25 MG TABLET PO SCH (09:04)
[2018-06-30] MEDS: PANTOPRAZOLE 40 MG TABLET PO SCH (09:04)
[2018-06-30] MEDS: SPIRONOLACTONE 25 MG TABLET PO SCH (09:04)
[2018-06-30] MEDS: predniSONE 10 MG TABLET PO SCH (09:04)
[2018-06-30] MEDS: ISOSORBIDE MONONITRATE 30 MG TABLET PO SCH (09:05)
[2018-06-30] MEDS: CARVEDILOL 3.125 MG TABLET PO SCH ×2 (09:05→21:02)
[2018-06-30] MEDS: FUROSEMIDE 40 MG/4 ML VIAL IV SCH ×2 (09:05→17:18)
[2018-06-30] MEDS: MULTIVITAMIN (CENTRUM) TABLET PO SCH (09:05)
[2018-06-30] MEDS: NYSTATIN POWDER 15 GM BOTTLE TOP SCH ×2 (10:37→21:07)
[2018-06-30] MEDS: IPRATROPIUM 500 MCG/2.5 ML NEB RESP TX SCH ×2 (14:50→19:48)
[2018-06-30] MEDS: traZODone 50 MG TABLET PO SCH (21:01)
[2018-06-30] MEDS: MAGNESIUM CHLORIDE 64 MG TABLET PO SCH (21:01)
[2018-06-30] MEDS: GABAPENTIN 300 MG CAPSULE PO SCH (21:01)
[2018-07-01] MEDS: IPRATROPIUM 500 MCG/2.5 ML NEB RESP TX SCH ×4 (00:07→19:30)
[2018-07-01] MEDS: INSULIN REGULAR 100 UNIT/ML SUBCUT SCH ×4 (01:35→17:30)
[2018-07-01 04:52] LABS: Basophils % 0.2 % (0.0-0.8); Eosinophils % 0.7 % (0.00-10.9); Hemoglobin 9.5 GM/DL (12.0-16.0); Immature Granulocytes % 0.2 %; Immature Granulocytes Absolute 0.01 #; Lymphocytes # 0.6 10*3/uL (1.4-4.0); Lymphocytes % 13.5 % (21.3-54.2); Mean Corpuscular HGB Conc 30.6 GM/DL (32-36); Mean Corpuscular Hemoglobin 28 PG (27-34); Mean Corpuscular Volume 89.9 FL (87-102); Monocytes # 0.6 10*3/uL (0.11-0.8); Monocytes % 13.1 % (1.7-12.7); Neutrophils # 3.1 10*3/uL (1.4-7.4); Neutrophils % 72.3 % (38.7-73.9); Red Blood Count 3.45 MC/CUMM (3.8-5.5); Red Cell Distribution Width 16.7 % (9.3-17.3); White Blood Count 4.3 T/CUMM (4-12)
[2018-07-01 05:01] LABS: Platelet Count 92 T/CUMM (130-400)
[2018-07-01 05:14] LABS: Calcium 7.7 MG/DL (8.5-10.1); Osmolality,Calculated 270.4 MOS/KG (273-304); Potassium 4.4 MMOL/L (3.5-5.1)
[2018-07-01 05:58] LABS: Hypochromasia 1+
[2018-07-01 05:59] LABS: Microcytosis 1+; Ovalocytes Slight
[2018-07-01 06:00] LABS: Platelet Estimate Decreased
[2018-07-01] MEDS: CEFTAROLINE 600 MG in SODIUM CHLORIDE 0.9% 100 ML IV SCH ×2 (06:32→17:15)
[2018-07-01] MEDS: FUROSEMIDE 40 MG/4 ML VIAL IV SCH ×2 (09:29→15:55)
[2018-07-01] MEDS: ISOSORBIDE MONONITRATE 30 MG TABLET PO SCH (09:29)
[2018-07-01] MEDS: LOSARTAN 25 MG TABLET PO SCH (09:29)
[2018-07-01] MEDS: CARVEDILOL 3.125 MG TABLET PO SCH (09:29)
[2018-07-01] MEDS: DOCUSATE SODIUM 100 MG CAPSULE PO SCH ×2 (09:29→21:23)
[2018-07-01] MEDS: SPIRONOLACTONE 25 MG TABLET PO SCH (09:31)
[2018-07-01] MEDS: predniSONE 10 MG TABLET PO SCH (09:31)
[2018-07-01] MEDS: MULTIVITAMIN (CENTRUM) TABLET PO SCH (09:31)
[2018-07-01] MEDS: NYSTATIN POWDER 15 GM BOTTLE TOP SCH ×2 (09:32→21:22)
[2018-07-01] MEDS: PANTOPRAZOLE 40 MG TABLET PO SCH (09:32)
[2018-07-01] MEDS: POLYETHYLENE GLYCOL POWDER 17 GM PACK PO SCH (09:32)
[2018-07-01] MEDS: CARVEDILOL 6.25 MG TABLET PO SCH ×2 (10:05→21:23)
[2018-07-01] MEDS: ACETAMINOPHEN 325 MG TABLET PO PRN (16:00)
[2018-07-01] MEDS: MAGNESIUM CHLORIDE 64 MG TABLET PO SCH (21:22)
[2018-07-01] MEDS: traZODone 50 MG TABLET PO SCH (21:23)
[2018-07-01] MEDS: GABAPENTIN 300 MG CAPSULE PO SCH (21:24)
[2018-07-02] MEDS: IPRATROPIUM 500 MCG/2.5 ML NEB RESP TX SCH ×4 (00:56→19:34)
[2018-07-02] MEDS: INSULIN REGULAR 100 UNIT/ML SUBCUT SCH ×4 (01:05→18:22)
[2018-07-02 05:20] LABS: Eosinophils # 0.1 10*3/uL (0.0-0.87); Eosinophils % 1.8 % (0.00-10.9); Hematocrit 30.7 VOL% (35.7-47.0); Hemoglobin 9.5 GM/DL (12.0-16.0); Immature Granulocytes % 0.5 %; Immature Granulocytes Absolute 0.02 #; Lymphocytes # 0.9 10*3/uL (1.4-4.0); Lymphocytes % 23.5 % (21.3-54.2); Mean Corpuscular HGB Conc 30.9 GM/DL (32-36); Mean Corpuscular Hemoglobin 28 PG (27-34); Mean Corpuscular Volume 89.8 FL (87-102); Mean Platelet Volume 11.4 FL (9.6-12.0); Monocytes # 0.5 10*3/uL (0.11-0.8); Monocytes % 11.9 % (1.7-12.7); Neutrophils # 2.4 10*3/uL (1.4-7.4); Neutrophils % 62.3 % (38.7-73.9); Red Blood Count 3.42 MC/CUMM (3.8-5.5); Red Cell Distribution Width 16.7 % (9.3-17.3); White Blood Count 3.9 T/CUMM (4-12)
[2018-07-02 05:22] LABS: Platelet Count 93 T/CUMM (130-400)
[2018-07-02] MEDS: CEFTAROLINE 600 MG in SODIUM CHLORIDE 0.9% 100 ML IV SCH ×2 (05:35→18:23)
[2018-07-02 05:38] LABS: Calcium 7.6 MG/DL (8.5-10.1); Osmolality,Calculated 275.1 MOS/KG (273-304); Potassium 4.2 MMOL/L (3.5-5.1)
[2018-07-02 07:05] LABS: Eosinophils 1 % (0-10); Hypochromasia 1+; Lymphocytes 16 % (20-55); Microcytosis 1+; Ovalocytes Slight; Platelet Estimate Decreased; Segmented Neutrophils 72 % (50-85); Total Cells Counted 100
[2018-07-02] MEDS: predniSONE 10 MG TABLET PO SCH (08:55)
[2018-07-02] MEDS: PANTOPRAZOLE 40 MG TABLET PO SCH (08:55)
[2018-07-02] MEDS: CARVEDILOL 6.25 MG TABLET PO SCH ×2 (08:55→21:04)
[2018-07-02] MEDS: ISOSORBIDE MONONITRATE 30 MG TABLET PO SCH (08:55)
[2018-07-02] MEDS: SPIRONOLACTONE 25 MG TABLET PO SCH (08:56)
[2018-07-02] MEDS: POLYETHYLENE GLYCOL POWDER 17 GM PACK PO SCH (08:56)
[2018-07-02] MEDS: FUROSEMIDE 40 MG TABLET PO SCH (08:56)
[2018-07-02] MEDS: MULTIVITAMIN (CENTRUM) TABLET PO SCH (08:56)
[2018-07-02] MEDS: NITROFURANTOIN MACRO/MONO 100 MG CAPSULE PO SCH ×2 (08:56→21:03)
[2018-07-02] MEDS: LOSARTAN 25 MG TABLET PO SCH (08:56)
[2018-07-02] MEDS: DOCUSATE SODIUM 100 MG CAPSULE PO SCH ×2 (08:56→21:04)
[2018-07-02] MEDS: NYSTATIN POWDER 15 GM BOTTLE TOP SCH ×2 (10:52→21:05)
[2018-07-02] MEDS ORDERED: TUBERCULIN SKIN TEST 0.1 ML SYRINGE INTRADERM ONE (15:00)
[2018-07-02] MEDS ORDERED: DEXTROMETHORPHAN ER 6 MG/ML 90 ML/BOTTLE PO PRN (15:45)
[2018-07-02] MEDS: MAGNESIUM CHLORIDE 64 MG TABLET PO SCH (21:04)
[2018-07-02] MEDS: traZODone 50 MG TABLET PO SCH (21:04)
[2018-07-02] MEDS: GABAPENTIN 300 MG CAPSULE PO SCH (21:04)
[2018-07-03] MEDS: IPRATROPIUM 500 MCG/2.5 ML NEB RESP TX SCH ×4 (00:08→19:56)
[2018-07-03 03:01] LABS: Calcium 7.7 MG/DL (8.5-10.1); Osmolality,Calculated 278.2 MOS/KG (273-304); Potassium 4.5 MMOL/L (3.5-5.1)
[2018-07-03] MEDS: INSULIN REGULAR 100 UNIT/ML SUBCUT SCH ×4 (03:04→19:26)
[2018-07-03] MEDS: CEFTAROLINE 600 MG in SODIUM CHLORIDE 0.9% 100 ML IV SCH ×3 (06:11→22:15)
[2018-07-03] MEDS: DOCUSATE SODIUM 100 MG CAPSULE PO SCH ×2 (08:35→21:15)
[2018-07-03] MEDS: ASPIRIN EC 81 MG TABLET PO SCH (08:35)
[2018-07-03] MEDS: NITROFURANTOIN MACRO/MONO 100 MG CAPSULE PO SCH ×2 (08:35→21:15)
[2018-07-03] MEDS: MULTIVITAMIN (CENTRUM) TABLET PO SCH (08:35)
[2018-07-03] MEDS: predniSONE 10 MG TABLET PO SCH (08:35)
[2018-07-03] MEDS: FUROSEMIDE 40 MG TABLET PO SCH (08:36)
[2018-07-03] MEDS: PANTOPRAZOLE 40 MG TABLET PO SCH (08:36)
[2018-07-03] MEDS: CARVEDILOL 6.25 MG TABLET PO SCH ×2 (08:36→21:15)
[2018-07-03] MEDS: LOSARTAN 25 MG TABLET PO SCH (08:36)
[2018-07-03] MEDS: SPIRONOLACTONE 25 MG TABLET PO SCH (08:36)
[2018-07-03] MEDS: ISOSORBIDE MONONITRATE 30 MG TABLET PO SCH (08:36)
[2018-07-03] MEDS: POLYETHYLENE GLYCOL POWDER 17 GM PACK PO SCH (08:40)
[2018-07-03] MEDS: NYSTATIN POWDER 15 GM BOTTLE TOP SCH ×2 (10:11→21:16)
[2018-07-03] MEDS: GABAPENTIN 300 MG CAPSULE PO SCH (21:15)
[2018-07-03] MEDS: traZODone 50 MG TABLET PO SCH (21:15)
[2018-07-03] MEDS: MAGNESIUM CHLORIDE 64 MG TABLET PO SCH (21:16)
[2018-07-04] MEDS: IPRATROPIUM 500 MCG/2.5 ML NEB RESP TX SCH ×2 (00:13→07:21)
[2018-07-04] MEDS: INSULIN REGULAR 100 UNIT/ML SUBCUT SCH ×2 (03:39→06:07)
[2018-07-04 05:15] LABS: Basophils % 0.3 % (0.0-0.8); Eosinophils # 0.1 10*3/uL (0.0-0.87); Eosinophils % 3.6 % (0.00-10.9); Hematocrit 30.9 VOL% (35.7-47.0); Hemoglobin 9.5 GM/DL (12.0-16.0); Immature Granulocytes % 0.8 %; Immature Granulocytes Absolute 0.03 #; Lymphocytes # 0.9 10*3/uL (1.4-4.0); Lymphocytes % 21.8 % (21.3-54.2); Mean Corpuscular HGB Conc 30.7 GM/DL (32-36); Mean Corpuscular Hemoglobin 28 PG (27-34); Mean Corpuscular Volume 89.6 FL (87-102); Mean Platelet Volume 11.8 FL (9.6-12.0); Monocytes # 0.3 10*3/uL (0.11-0.8); Monocytes % 8.7 % (1.7-12.7); Neutrophils # 2.5 10*3/uL (1.4-7.4); Neutrophils % 64.8 % (38.7-73.9); Red Blood Count 3.45 MC/CUMM (3.8-5.5); Red Cell Distribution Width 16.4 % (9.3-17.3); White Blood Count 3.9 T/CUMM (4-12)
[2018-07-04 05:18] LABS: Platelet Count 79 T/CUMM (130-400)
[2018-07-04 05:36] LABS: Hypochromasia Slight; Target Cells Few
[2018-07-04 05:37] LABS: Anisocytosis Slight; Macrocytosis Slight
[2018-07-04 05:42] LABS: Calcium 8.1 MG/DL (8.5-10.1); Osmolality,Calculated 279.1 MOS/KG (273-304); Potassium 4.5 MMOL/L (3.5-5.1)
[2018-07-04 07:31] VITALS: BP 142/73
[2018-07-04] MEDS: predniSONE 10 MG TABLET PO SCH (09:13)
[2018-07-04] MEDS: MULTIVITAMIN (CENTRUM) TABLET PO SCH (09:13)
[2018-07-04] MEDS: ISOSORBIDE MONONITRATE 30 MG TABLET PO SCH (09:13)
[2018-07-04] MEDS: SPIRONOLACTONE 25 MG TABLET PO SCH (09:13)
[2018-07-04] MEDS: FUROSEMIDE 40 MG TABLET PO SCH (09:13)
[2018-07-04] MEDS: LOSARTAN 25 MG TABLET PO SCH (09:13)
[2018-07-04] MEDS: PANTOPRAZOLE 40 MG TABLET PO SCH (09:13)
[2018-07-04] MEDS: NITROFURANTOIN MACRO/MONO 100 MG CAPSULE PO SCH (09:13)
[2018-07-04] MEDS: CARVEDILOL 6.25 MG TABLET PO SCH (09:13)
[2018-07-04] MEDS: CEFTAROLINE 600 MG in SODIUM CHLORIDE 0.9% 100 ML IV SCH (09:14)
[2018-07-04] MEDS: POLYETHYLENE GLYCOL POWDER 17 GM PACK PO SCH (09:14)
[2018-07-04] MEDS: DOCUSATE SODIUM 100 MG CAPSULE PO SCH (09:14)
[2018-07-04] MEDS: NYSTATIN POWDER 15 GM BOTTLE TOP SCH (09:15)
== END 2018-07-04 10:50 | DRG 602 ==
LOC: EDBD → EDUNIT# → N.ED 09:45 → N.EDINP 12:44 → N.2E 15:44
PROVIDERS: ADMIT Family Medicine; ATTEND Family Medicine

== ENCOUNTER 2018-07-08 08:57 | Observation (INO) ==
[2018-07-08] MEDS ORDERED: FUROSEMIDE 100 MG/10 ML VIAL IV STA (09:20)
[2018-07-08] MEDS: metOLazone 5 MG TABLET PO SCH (10:13)
[2018-07-08 10:16] LABS: Albumin 2.3 G/DL (3.4-5.0); Calcium 7.8 MG/DL (8.5-10.1); Osmolality,Calculated 281.7 MOS/KG (273-304); Potassium 4.3 MMOL/L (3.5-5.1); Total Protein 6.2 G/DL (6.4-8.3)
[2018-07-08 10:17] LABS: Basophils % 0.1 % (0.0-0.8); Eosinophils # 0.1 10*3/uL (0.0-0.87); Eosinophils % 1.6 % (0.00-10.9); Hematocrit 31.6 VOL% (35.7-47.0); Hemoglobin 9.9 GM/DL (12.0-16.0); Immature Granulocytes % 0.6 %; Immature Granulocytes Absolute 0.05 #; Lymphocytes # 0.7 10*3/uL (1.4-4.0); Lymphocytes % 8.6 % (21.3-54.2); Mean Corpuscular HGB Conc 31.3 GM/DL (32-36); Mean Corpuscular Hemoglobin 28 PG (27-34); Mean Corpuscular Volume 90.3 FL (87-102); Mean Platelet Volume 11.5 FL (9.6-12.0); Monocytes # 0.8 10*3/uL (0.11-0.8); Monocytes % 9.4 % (1.7-12.7); Neutrophils # 6.6 10*3/uL (1.4-7.4); Neutrophils % 79.7 % (38.7-73.9); Platelet Count 84 T/CUMM (130-400); Red Cell Distribution Width 16.5 % (9.3-17.3); White Blood Count 8.2 T/CUMM (4-12)
[2018-07-08 10:25] LABS: Apearance,Urine Slightly Hazy (Clear); Bacteria,Urine Occasional /HPF (Few); Bilirubin,Urine Negative (Negative); Blood, Urine Small mg/dL (Negative); Glucose,Urine (UA) Negative (Negative); Ketones,Urine Negative (Negative); Nitrite,Urine Negative (Negative); Protein,Urine Negative; RBC,Urine 13 /HPF (0-4); Squamous Epithelial Cell,Urine Occasional /HPF (0-10); Urine Color Amber (Yellow); Urine Specific Gravity 1.018 (1.001-1.035); Urine Urobilinogen < 2.0 EU/DL (0.2-1.0); WBC,Urine 2 /HPF (0-6)
[2018-07-08 10:36] LABS: INR 1.1; PT Patient Result 12.4 SECS; Partial Thromboplastin Time 26.7 SECS (0-40)
[2018-07-08] MEDS ORDERED: DEXTROSE 50% 25 GM/50 ML SYRINGE IV PRN (11:39)
[2018-07-08] MEDS ORDERED: ONDANSETRON 4 MG/2 ML VIAL IV PRN (11:39)
[2018-07-08] MEDS ORDERED: GLUCAGON 1 MG VIAL IM PRN (11:39)
[2018-07-08] MEDS ORDERED: ALUMINUM/MAGNES/SIMETH MAX STR 30 ML UDCUP PO PRN (11:43)
[2018-07-08] MEDS ORDERED: MAGNESIUM HYDROXIDE SUSP 30 ML UDCUP PO PRN (11:52)
[2018-07-08] MEDS ORDERED: BENZOCAINE/MENTHOL LOZENGE 18/BOX PO PRN (11:52)
[2018-07-08] MEDS ORDERED: NITROGLYCERIN SL 0.4 MG TABLET SL PRN (11:52)
[2018-07-08] MEDS ORDERED: GLIMEPIRIDE 2 MG TABLET PO PRN (11:52)
[2018-07-08] MEDS ORDERED: oxyCODONE IR 5 MG TABLET PO PRN (11:52)
[2018-07-08] MEDS: IPRATROPIUM 500 MCG/2.5 ML NEB RESP TX SCH ×2 (12:10→19:30)
[2018-07-08 12:24] LABS: Hypochromasia 2+; Microcytosis 1+; Ovalocytes Few; Platelet Estimate Adequate; Stomatocytes Slight
[2018-07-08] MEDS: ENOXAPARIN 30 MG/0.3 ML SYRINGE SUBCUT SCH (15:42)
[2018-07-08] MEDS: NITROFURANTOIN MACRO/MONO 100 MG CAPSULE PO SCH ×2 (15:42→20:54)
[2018-07-08] MEDS: FUROSEMIDE 40 MG/4 ML VIAL IV SCH (15:42)
[2018-07-08] MEDS: INSULIN LISPRO 100 UNIT/ML SUBCUT SCH ×2 (18:59→21:00)
[2018-07-08] MEDS: GABAPENTIN 300 MG CAPSULE PO SCH (20:53)
[2018-07-08] MEDS: CARVEDILOL 6.25 MG TABLET PO SCH (20:54)
[2018-07-08] MEDS: DOCUSATE SODIUM 100 MG CAPSULE PO SCH (20:54)
[2018-07-08] MEDS: MAGNESIUM CHLORIDE 64 MG TABLET PO SCH (20:54)
[2018-07-08] MEDS: traZODone 50 MG TABLET PO SCH (20:54)
[2018-07-09] MEDS: IPRATROPIUM 500 MCG/2.5 ML NEB RESP TX SCH ×4 (00:17→18:50)
[2018-07-09] MEDS: DEXTROMETHORPHAN ER 6 MG/ML 90 ML/BOTTLE PO PRN (01:38)
[2018-07-09] MEDS: FUROSEMIDE 40 MG/4 ML VIAL IV SCH ×2 (09:26→16:29)
[2018-07-09] MEDS: metOLazone 5 MG TABLET PO SCH (09:27)
[2018-07-09] MEDS: CARVEDILOL 6.25 MG TABLET PO SCH ×2 (09:27→22:28)
[2018-07-09] MEDS: NITROFURANTOIN MACRO/MONO 100 MG CAPSULE PO SCH ×2 (09:27→22:28)
[2018-07-09] MEDS: ASPIRIN EC 81 MG TABLET PO SCH (09:27)
[2018-07-09] MEDS: POLYETHYLENE GLYCOL POWDER 17 GM PACK PO SCH (09:27)
[2018-07-09] MEDS: predniSONE 10 MG TABLET PO SCH (09:27)
[2018-07-09] MEDS: MULTIVITAMIN (CENTRUM) TABLET PO SCH (09:27)
[2018-07-09] MEDS: DOCUSATE SODIUM 100 MG CAPSULE PO SCH ×2 (09:27→22:37)
[2018-07-09] MEDS: SPIRONOLACTONE 25 MG TABLET PO SCH (09:27)
[2018-07-09] MEDS: ISOSORBIDE MONONITRATE 30 MG TABLET PO SCH (09:28)
[2018-07-09] MEDS: PANTOPRAZOLE 40 MG TABLET PO SCH (09:28)
[2018-07-09] MEDS: INSULIN LISPRO 100 UNIT/ML SUBCUT SCH ×4 (09:28→22:41)
[2018-07-09] MEDS: LOSARTAN 25 MG TABLET PO SCH (09:28)
[2018-07-09] MEDS: ENOXAPARIN 30 MG/0.3 ML SYRINGE SUBCUT SCH (14:40)
[2018-07-09] MEDS: GABAPENTIN 300 MG CAPSULE PO SCH (22:27)
[2018-07-09] MEDS: MAGNESIUM CHLORIDE 64 MG TABLET PO SCH (22:28)
[2018-07-09] MEDS: traZODone 50 MG TABLET PO SCH (22:29)
[2018-07-10] MEDS: DEXTROMETHORPHAN ER 6 MG/ML 90 ML/BOTTLE PO PRN (00:14)
[2018-07-10] MEDS: IPRATROPIUM 500 MCG/2.5 ML NEB RESP TX SCH ×4 (00:36→19:22)
[2018-07-10 04:56] LABS: Basophils % 0.2 % (0.0-0.8); Eosinophils # 0.1 10*3/uL (0.0-0.87); Eosinophils % 2.8 % (0.00-10.9); Hematocrit 26.3 VOL% (35.7-47.0); Hemoglobin 8.1 GM/DL (12.0-16.0); Immature Granulocytes % 0.5 %; Immature Granulocytes Absolute 0.02 #; Lymphocytes # 0.9 10*3/uL (1.4-4.0); Lymphocytes % 20.4 % (21.3-54.2); Mean Corpuscular HGB Conc 30.8 GM/DL (32-36); Mean Corpuscular Hemoglobin 27 PG (27-34); Mean Corpuscular Volume 88.6 FL (87-102); Mean Platelet Volume 12.3 FL (9.6-12.0); Monocytes # 0.5 10*3/uL (0.11-0.8); Monocytes % 10.5 % (1.7-12.7); Neutrophils # 2.8 10*3/uL (1.4-7.4); Neutrophils % 65.6 % (38.7-73.9); Red Blood Count 2.97 MC/CUMM (3.8-5.5); Red Cell Distribution Width 16.1 % (9.3-17.3)
[2018-07-10 04:57] LABS: Platelet Count 56 T/CUMM (130-400); White Blood Count 4.3 T/CUMM (4-12)
[2018-07-10 05:15] LABS: Elliptocytes Few; Hypochromasia 1+; Microcytosis 1+; Platelet Estimate Decreased
[2018-07-10 05:23] LABS: Calcium 7.6 MG/DL (8.5-10.1); Potassium 3.4 MMOL/L (3.5-5.1)
[2018-07-10 05:28] LABS: Calcium 7.5 MG/DL (8.5-10.1); Potassium 3.5 MMOL/L (3.5-5.1)
[2018-07-10] MEDS: INSULIN LISPRO 100 UNIT/ML SUBCUT SCH ×4 (07:18→22:35)
[2018-07-10] MEDS: predniSONE 10 MG TABLET PO SCH (08:25)
[2018-07-10] MEDS: ASPIRIN EC 81 MG TABLET PO SCH (08:25)
[2018-07-10] MEDS: POTASSIUM CHLORIDE 20 MEQ TABLET PO SCH ×2 (08:25→22:23)
[2018-07-10] MEDS: ISOSORBIDE MONONITRATE 30 MG TABLET PO SCH (08:26)
[2018-07-10] MEDS: MULTIVITAMIN (CENTRUM) TABLET PO SCH (08:26)
[2018-07-10] MEDS: NITROFURANTOIN MACRO/MONO 100 MG CAPSULE PO SCH ×2 (08:26→22:22)
[2018-07-10] MEDS: CARVEDILOL 6.25 MG TABLET PO SCH ×2 (08:26→22:23)
[2018-07-10] MEDS: DOCUSATE SODIUM 100 MG CAPSULE PO SCH ×2 (08:26→22:22)
[2018-07-10] MEDS: PANTOPRAZOLE 40 MG TABLET PO SCH (08:26)
[2018-07-10] MEDS: LOSARTAN 25 MG TABLET PO SCH (08:26)
[2018-07-10] MEDS: metOLazone 5 MG TABLET PO SCH (08:26)
[2018-07-10] MEDS: SPIRONOLACTONE 25 MG TABLET PO SCH (08:26)
[2018-07-10] MEDS: FUROSEMIDE 40 MG/4 ML VIAL IV SCH ×2 (08:27→16:15)
[2018-07-10] MEDS: POLYETHYLENE GLYCOL POWDER 17 GM PACK PO SCH (08:27)
[2018-07-10] MEDS: traZODone 50 MG TABLET PO SCH (22:22)
[2018-07-10] MEDS: GABAPENTIN 300 MG CAPSULE PO SCH (22:22)
[2018-07-10] MEDS: MAGNESIUM CHLORIDE 64 MG TABLET PO SCH (22:24)
[2018-07-11] MEDS: IPRATROPIUM 500 MCG/2.5 ML NEB RESP TX SCH ×2 (01:02→07:00)
[2018-07-11 05:04] LABS: Eosinophils # 0.1 10*3/uL (0.0-0.87); Hematocrit 29.1 VOL% (35.7-47.0); Hemoglobin 8.8 GM/DL (12.0-16.0); Immature Granulocytes % 0.7 %; Immature Granulocytes Absolute 0.03 #; Lymphocytes # 0.8 10*3/uL (1.4-4.0); Lymphocytes % 18.9 % (21.3-54.2); Mean Corpuscular HGB Conc 30.2 GM/DL (32-36); Mean Corpuscular Hemoglobin 27 PG (27-34); Mean Corpuscular Volume 90.1 FL (87-102); Mean Platelet Volume 11.6 FL (9.6-12.0); Monocytes # 0.4 10*3/uL (0.11-0.8); Neutrophils # 3.1 10*3/uL (1.4-7.4); Neutrophils % 69.4 % (38.7-73.9); Platelet Count 68 T/CUMM (130-400); Red Blood Count 3.23 MC/CUMM (3.8-5.5); White Blood Count 4.4 T/CUMM (4-12)
[2018-07-11 05:37] LABS: Hypochromasia 1+; Lymphocytes 16 % (20-55); Microcytosis 1+; Platelet Estimate Decreased; Segmented Neutrophils 82 % (50-85); Total Cells Counted 100
[2018-07-11 05:44] LABS: Calcium 7.9 MG/DL (8.5-10.1); Potassium 4.1 MMOL/L (3.5-5.1); Potassium 4.2 MMOL/L (3.5-5.1)
[2018-07-11 08:13] VITALS: BP 128/70
[2018-07-11] MEDS: INSULIN LISPRO 100 UNIT/ML SUBCUT SCH (08:23)
[2018-07-11] MEDS: PANTOPRAZOLE 40 MG TABLET PO SCH (09:07)
[2018-07-11] MEDS: LOSARTAN 25 MG TABLET PO SCH (09:08)
[2018-07-11] MEDS: CARVEDILOL 6.25 MG TABLET PO SCH (09:08)
[2018-07-11] MEDS: predniSONE 10 MG TABLET PO SCH (09:08)
[2018-07-11] MEDS: ISOSORBIDE MONONITRATE 30 MG TABLET PO SCH (09:08)
[2018-07-11] MEDS: SPIRONOLACTONE 25 MG TABLET PO SCH (09:08)
[2018-07-11] MEDS: NITROFURANTOIN MACRO/MONO 100 MG CAPSULE PO SCH (09:08)
[2018-07-11] MEDS: FUROSEMIDE 40 MG/4 ML VIAL IV SCH (09:09)
[2018-07-11] MEDS: metOLazone 5 MG TABLET PO SCH (09:09)
[2018-07-11] MEDS: MULTIVITAMIN (CENTRUM) TABLET PO SCH (09:09)
[2018-07-11] MEDS: ASPIRIN EC 81 MG TABLET PO SCH (09:09)
[2018-07-11] MEDS: POTASSIUM CHLORIDE 20 MEQ TABLET PO SCH (09:12)
[2018-07-11] MEDS: POLYETHYLENE GLYCOL POWDER 17 GM PACK PO SCH (09:15)
[2018-07-11] MEDS: DOCUSATE SODIUM 100 MG CAPSULE PO SCH (10:17)
== END 2018-07-11 10:46 ==
LOC: EDUNIT# → N.EDINP 08:57 → N.ED 08:57 → N.EDINP 13:57 → N.2E 14:14
PROVIDERS: ADMIT Family Medicine; ATTEND Family Medicine

== ENCOUNTER 2018-09-30 11:18 | Inpatient (IN) ==
[2018-09-30] MEDS ORDERED: CEFTAROLINE 600 MG in SODIUM CHLORIDE 0.9% 100 ML IV STA (11:35)
[2018-09-30 12:25] LABS: Basophils % 0.2 % (0.0-0.8); Eosinophils # 0.1 10*3/uL (0.0-0.87); Eosinophils % 2.5 % (0.00-10.9); Hematocrit 30.8 VOL% (35.7-47.0); Hemoglobin 9.4 GM/DL (12.0-16.0); Immature Granulocytes % 0.4 %; Immature Granulocytes Absolute 0.02 #; Lymphocytes # 0.7 10*3/uL (1.4-4.0); Lymphocytes % 14.3 % (21.3-54.2); Mean Corpuscular HGB Conc 30.5 GM/DL (32-36); Mean Corpuscular Volume 89.8 FL (87-102); Mean Platelet Volume 11.8 FL (9.6-12.0); Monocytes % 8.4 % (1.7-12.7); Neutrophils % 74.2 % (38.7-73.9); Platelet Count 65 T/CUMM (130-400); Red Blood Count 3.43 MC/CUMM (3.8-5.5); Red Cell Distribution Width 17.4 % (9.3-17.3); White Blood Count 5.1 T/CUMM (4-12)
[2018-09-30 12:32] LABS: Apearance,Urine CLEAR (Clear); Bacteria,Urine Many /HPF (Few); Bilirubin,Urine Negative (Negative); Blood, Urine Small mg/dL (Negative); Glucose,Urine (UA) Negative (Negative); Hyaline Casts,Urine 6 /LPF (0-3); Ketones,Urine Negative (Negative); Mucus,Urine Occasional /LPF (Occasional); Nitrite,Urine Negative (Negative); Protein,Urine Negative; RBC,Urine 3 /HPF (0-4); Squamous Epithelial Cell,Urine Occasional /HPF (0-10); Urine Color Yellow (Yellow); Urine Specific Gravity 1.009 (1.001-1.035); Urine Urobilinogen < 2.0 EU/DL (0.2-1.0); WBC,Urine 52 /HPF (0-6)
[2018-09-30] MEDS ORDERED: ONDANSETRON 4 MG/2 ML VIAL IV PRN (12:34)
[2018-09-30] MEDS ORDERED: DEXTROSE 50% 25 GM/50 ML SYRINGE IV PRN (12:34)
[2018-09-30] MEDS ORDERED: GLUCAGON 1 MG VIAL IM PRN (12:34)
[2018-09-30] MEDS ORDERED: GLIMEPIRIDE 2 MG TABLET PO PRN (12:37)
[2018-09-30] MEDS ORDERED: ALUMINUM/MAGNES/SIMETH MAX STR 30 ML UDCUP PO PRN (12:37)
[2018-09-30] MEDS ORDERED: NITROGLYCERIN SL 0.4 MG TABLET SL PRN (12:37)
[2018-09-30] MEDS ORDERED: ALBUTEROL/IPRATROPIUM 3 ML NEB RESP TX PRN (12:37)
[2018-09-30 12:42] LABS: Albumin 2.6 G/DL (3.4-5.0); Bilirubin,Total 0.8 MG/DL (0.2-1.0); Calcium 8.6 MG/DL (8.5-10.1); Osmolality,Calculated 281.8 MOS/KG (273-304); Total Protein 6.7 G/DL (6.4-8.3)
[2018-09-30 13:18] LABS: Polychromasia Slight
[2018-09-30 13:19] LABS: Hypochromasia 1+; Microcytosis 1+; Platelet Estimate Decreased
[2018-09-30 14:07] LABS: Sedimentation Rate-Westergren 81 MM/HR (0-30)
[2018-09-30] MEDS: ENOXAPARIN 30 MG/0.3 ML SYRINGE SUBCUT SCH (16:25)
[2018-09-30] MEDS: INSULIN LISPRO 100 UNIT/ML SUBCUT SCH ×2 (16:25→20:45)
[2018-09-30] MEDS: FUROSEMIDE 40 MG TABLET PO SCH (16:25)
[2018-09-30] MEDS: SODIUM CHLORIDE 0.45% 1,000 ML IV SCH (16:26)
[2018-09-30] MEDS: DOCUSATE SODIUM 100 MG CAPSULE PO SCH (20:45)
[2018-09-30] MEDS: CARVEDILOL 3.125 MG TABLET PO SCH (20:45)
[2018-09-30] MEDS: MAGNESIUM CHLORIDE 64 MG TABLET PO SCH (20:45)
[2018-09-30] MEDS: traZODone 50 MG TABLET PO SCH (20:45)
[2018-09-30] MEDS: rOPINIRole 0.25 MG TABLET PO SCH (20:45)
[2018-09-30] MEDS: GABAPENTIN 300 MG CAPSULE PO SCH (20:45)
[2018-09-30] MEDS: ACETAMINOPHEN 325 MG TABLET PO PRN (23:11)
[2018-10-01] MEDS: CEFTAROLINE 400 MG in SODIUM CHLORIDE 0.9% 100 ML IV SCH ×2 (01:51→13:51)
[2018-10-01 04:55] LABS: Basophils % 0.3 % (0.0-0.8); Eosinophils # 0.1 10*3/uL (0.0-0.87); Eosinophils % 2.3 % (0.00-10.9); Hematocrit 26.7 VOL% (35.7-47.0); Hemoglobin 8.5 GM/DL (12.0-16.0); Immature Granulocytes % 0.3 %; Immature Granulocytes Absolute 0.01 #; Lymphocytes # 1.1 10*3/uL (1.4-4.0); Mean Corpuscular HGB Conc 31.8 GM/DL (32-36); Mean Corpuscular Volume 88.4 FL (87-102); Mean Platelet Volume 12.4 FL (9.6-12.0); Monocytes % 9.4 % (1.7-12.7); Neutrophils % 56.7 % (38.7-73.9); Platelet Count 60 T/CUMM (130-400); Red Blood Count 3.02 MC/CUMM (3.8-5.5); Red Cell Distribution Width 17.5 % (9.3-17.3); White Blood Count 3.4 T/CUMM (4-12)
[2018-10-01 05:23] LABS: Calcium 8.4 MG/DL (8.5-10.1); Osmolality,Calculated 278.5 MOS/KG (273-304)
[2018-10-01 05:43] LABS: Anisocytosis Slight; Eosinophils 2 % (0-10); Lymphocytes 21 % (20-55); Segmented Neutrophils 69 % (50-85); Total Cells Counted 100
[2018-10-01 05:44] LABS: Microcytosis 1+; Target Cells Slight
[2018-10-01 05:45] LABS: Platelet Estimate Decreased
[2018-10-01] MEDS: INSULIN LISPRO 100 UNIT/ML SUBCUT SCH ×4 (08:32→22:17)
[2018-10-01] MEDS: ISOSORBIDE MONONITRATE 30 MG TABLET PO SCH (09:23)
[2018-10-01] MEDS: MULTIVITAMIN (CENTRUM) TABLET PO SCH (09:23)
[2018-10-01] MEDS: predniSONE 5 MG TABLET PO SCH (09:23)
[2018-10-01] MEDS: DOCUSATE SODIUM 100 MG CAPSULE PO SCH ×2 (09:23→22:08)
[2018-10-01] MEDS: PANTOPRAZOLE 40 MG TABLET PO SCH (09:23)
[2018-10-01] MEDS: LOSARTAN 25 MG TABLET PO SCH (09:23)
[2018-10-01] MEDS: SPIRONOLACTONE 25 MG TABLET PO SCH (09:23)
[2018-10-01] MEDS: CARVEDILOL 3.125 MG TABLET PO SCH ×2 (09:23→22:08)
[2018-10-01] MEDS: ASPIRIN EC 81 MG TABLET PO SCH (09:23)
[2018-10-01] MEDS: FUROSEMIDE 40 MG TABLET PO SCH ×2 (09:23→16:41)
[2018-10-01] MEDS: POLYETHYLENE GLYCOL POWDER 17 GM PACK PO SCH (09:24)
[2018-10-01] MEDS: SODIUM CHLORIDE 0.45% 1,000 ML IV SCH (13:51)
[2018-10-01] MEDS: ENOXAPARIN 30 MG/0.3 ML SYRINGE SUBCUT SCH (13:52)
[2018-10-01] MEDS: rOPINIRole 0.25 MG TABLET PO SCH (22:07)
[2018-10-01] MEDS: GABAPENTIN 300 MG CAPSULE PO SCH (22:07)
[2018-10-01] MEDS: traZODone 50 MG TABLET PO SCH (22:08)
[2018-10-01] MEDS: MAGNESIUM CHLORIDE 64 MG TABLET PO SCH (22:08)
[2018-10-02] MEDS: CEFTAROLINE 400 MG in SODIUM CHLORIDE 0.9% 100 ML IV SCH ×2 (01:24→14:40)
[2018-10-02] MEDS: INSULIN LISPRO 100 UNIT/ML SUBCUT SCH ×4 (07:26→21:30)
[2018-10-02] MEDS: CARVEDILOL 3.125 MG TABLET PO SCH ×2 (09:16→21:29)
[2018-10-02] MEDS: POLYETHYLENE GLYCOL POWDER 17 GM PACK PO SCH (09:16)
[2018-10-02] MEDS: MULTIVITAMIN (CENTRUM) TABLET PO SCH (09:16)
[2018-10-02] MEDS: ASPIRIN EC 81 MG TABLET PO SCH (09:16)
[2018-10-02] MEDS: SPIRONOLACTONE 25 MG TABLET PO SCH (09:17)
[2018-10-02] MEDS: FUROSEMIDE 40 MG TABLET PO SCH ×2 (09:20→16:55)
[2018-10-02] MEDS: predniSONE 5 MG TABLET PO SCH (09:21)
[2018-10-02] MEDS: ISOSORBIDE MONONITRATE 30 MG TABLET PO SCH (09:21)
[2018-10-02] MEDS: DOCUSATE SODIUM 100 MG CAPSULE PO SCH ×2 (09:21→21:29)
[2018-10-02] MEDS: LOSARTAN 25 MG TABLET PO SCH (09:21)
[2018-10-02] MEDS: PANTOPRAZOLE 40 MG TABLET PO SCH (09:21)
[2018-10-02] MEDS ORDERED: CADEXOMER IODINE 0.9% TOP ONE (13:03)
[2018-10-02] MEDS: ENOXAPARIN 30 MG/0.3 ML SYRINGE SUBCUT SCH (14:41)
[2018-10-02] MEDS: rOPINIRole 0.25 MG TABLET PO SCH (21:29)
[2018-10-02] MEDS: traZODone 50 MG TABLET PO SCH (21:29)
[2018-10-02] MEDS: GABAPENTIN 300 MG CAPSULE PO SCH (21:29)
[2018-10-02] MEDS: MAGNESIUM CHLORIDE 64 MG TABLET PO SCH (21:30)
[2018-10-03] MEDS: SODIUM CHLORIDE 0.45% 1,000 ML IV SCH (00:34)
[2018-10-03] MEDS: CEFTAROLINE 400 MG in SODIUM CHLORIDE 0.9% 100 ML IV SCH ×2 (00:35→14:41)
[2018-10-03] MEDS: ACETAMINOPHEN 325 MG TABLET PO PRN ×2 (03:21→23:34)
[2018-10-03] MEDS: POLYETHYLENE GLYCOL POWDER 17 GM PACK PO SCH (09:34)
[2018-10-03] MEDS: DOCUSATE SODIUM 100 MG CAPSULE PO SCH ×2 (09:34→21:35)
[2018-10-03] MEDS: CARVEDILOL 3.125 MG TABLET PO SCH ×2 (09:35→21:34)
[2018-10-03] MEDS: predniSONE 5 MG TABLET PO SCH (09:35)
[2018-10-03] MEDS: ASPIRIN EC 81 MG TABLET PO SCH (09:35)
[2018-10-03] MEDS: PANTOPRAZOLE 40 MG TABLET PO SCH (09:35)
[2018-10-03] MEDS: MULTIVITAMIN (CENTRUM) TABLET PO SCH (09:35)
[2018-10-03] MEDS: LOSARTAN 25 MG TABLET PO SCH (09:35)
[2018-10-03] MEDS: FUROSEMIDE 40 MG TABLET PO SCH ×2 (09:35→17:13)
[2018-10-03] MEDS: SPIRONOLACTONE 25 MG TABLET PO SCH (09:35)
[2018-10-03] MEDS: ISOSORBIDE MONONITRATE 30 MG TABLET PO SCH (09:36)
[2018-10-03] MEDS: INSULIN LISPRO 100 UNIT/ML SUBCUT SCH ×4 (09:38→21:35)
[2018-10-03] MEDS: ENOXAPARIN 30 MG/0.3 ML SYRINGE SUBCUT SCH (14:47)
[2018-10-03] MEDS: rOPINIRole 0.25 MG TABLET PO SCH (21:34)
[2018-10-03] MEDS: traZODone 50 MG TABLET PO SCH (21:35)
[2018-10-03] MEDS: GABAPENTIN 300 MG CAPSULE PO SCH (21:35)
[2018-10-03] MEDS: MAGNESIUM CHLORIDE 64 MG TABLET PO SCH (21:35)
[2018-10-04] MEDS: SODIUM CHLORIDE 0.45% 1,000 ML IV SCH (00:23)
[2018-10-04] MEDS: CEFTAROLINE 400 MG in SODIUM CHLORIDE 0.9% 100 ML IV SCH ×2 (00:49→14:53)
[2018-10-04] MEDS: MULTIVITAMIN (CENTRUM) TABLET PO SCH (08:49)
[2018-10-04] MEDS: DOCUSATE SODIUM 100 MG CAPSULE PO SCH ×2 (08:49→21:08)
[2018-10-04] MEDS: FUROSEMIDE 40 MG TABLET PO SCH ×2 (08:49→17:07)
[2018-10-04] MEDS: ASPIRIN EC 81 MG TABLET PO SCH (08:49)
[2018-10-04] MEDS: ISOSORBIDE MONONITRATE 30 MG TABLET PO SCH (08:49)
[2018-10-04] MEDS: CARVEDILOL 3.125 MG TABLET PO SCH ×2 (08:49→21:08)
[2018-10-04] MEDS: SPIRONOLACTONE 25 MG TABLET PO SCH (08:49)
[2018-10-04] MEDS: predniSONE 5 MG TABLET PO SCH (08:49)
[2018-10-04] MEDS: LOSARTAN 25 MG TABLET PO SCH (08:50)
[2018-10-04] MEDS: PANTOPRAZOLE 40 MG TABLET PO SCH (08:50)
[2018-10-04] MEDS: INSULIN LISPRO 100 UNIT/ML SUBCUT SCH ×4 (08:52→21:09)
[2018-10-04] MEDS: POLYETHYLENE GLYCOL POWDER 17 GM PACK PO SCH (08:52)
[2018-10-04] MEDS: ENOXAPARIN 30 MG/0.3 ML SYRINGE SUBCUT SCH (14:58)
[2018-10-04] MEDS: traZODone 50 MG TABLET PO SCH (21:08)
[2018-10-04] MEDS: GABAPENTIN 300 MG CAPSULE PO SCH (21:08)
[2018-10-04] MEDS: rOPINIRole 0.25 MG TABLET PO SCH (21:08)
[2018-10-04] MEDS: MAGNESIUM CHLORIDE 64 MG TABLET PO SCH (21:09)
[2018-10-05] MEDS: CEFTAROLINE 400 MG in SODIUM CHLORIDE 0.9% 100 ML IV SCH ×2 (01:58→14:44)
[2018-10-05] MEDS: POLYETHYLENE GLYCOL POWDER 17 GM PACK PO SCH (08:50)
[2018-10-05] MEDS: MULTIVITAMIN (CENTRUM) TABLET PO SCH (08:50)
[2018-10-05] MEDS: DOCUSATE SODIUM 100 MG CAPSULE PO SCH ×2 (08:51→22:02)
[2018-10-05] MEDS: predniSONE 5 MG TABLET PO SCH (08:51)
[2018-10-05] MEDS: ASPIRIN EC 81 MG TABLET PO SCH (08:51)
[2018-10-05] MEDS: FUROSEMIDE 40 MG TABLET PO SCH ×2 (08:51→17:02)
[2018-10-05] MEDS: LOSARTAN 25 MG TABLET PO SCH (08:51)
[2018-10-05] MEDS: PANTOPRAZOLE 40 MG TABLET PO SCH (08:51)
[2018-10-05] MEDS: SPIRONOLACTONE 25 MG TABLET PO SCH (08:51)
[2018-10-05] MEDS: ISOSORBIDE MONONITRATE 30 MG TABLET PO SCH (08:51)
[2018-10-05] MEDS: INSULIN LISPRO 100 UNIT/ML SUBCUT SCH ×4 (08:52→21:20)
[2018-10-05] MEDS: CARVEDILOL 3.125 MG TABLET PO SCH ×2 (08:52→22:02)
[2018-10-05] MEDS: ENOXAPARIN 30 MG/0.3 ML SYRINGE SUBCUT SCH (14:44)
[2018-10-05] MEDS: ACETAMINOPHEN 325 MG TABLET PO PRN (22:00)
[2018-10-05] MEDS: MAGNESIUM CHLORIDE 64 MG TABLET PO SCH (22:01)
[2018-10-05] MEDS: GABAPENTIN 300 MG CAPSULE PO SCH (22:02)
[2018-10-05] MEDS: rOPINIRole 0.25 MG TABLET PO SCH (22:02)
[2018-10-05] MEDS: traZODone 50 MG TABLET PO SCH (22:03)
[2018-10-06] MEDS: CEFTAROLINE 400 MG in SODIUM CHLORIDE 0.9% 100 ML IV SCH ×2 (02:13→12:41)
[2018-10-06] MEDS: ACETAMINOPHEN 325 MG TABLET PO PRN (03:51)
[2018-10-06] MEDS: SPIRONOLACTONE 25 MG TABLET PO SCH (08:25)
[2018-10-06] MEDS: LOSARTAN 25 MG TABLET PO SCH (08:25)
[2018-10-06] MEDS: DOCUSATE SODIUM 100 MG CAPSULE PO SCH ×2 (08:25→22:32)
[2018-10-06] MEDS: predniSONE 5 MG TABLET PO SCH (08:25)
[2018-10-06] MEDS: FUROSEMIDE 40 MG TABLET PO SCH ×2 (08:25→17:03)
[2018-10-06] MEDS: ISOSORBIDE MONONITRATE 30 MG TABLET PO SCH (08:26)
[2018-10-06] MEDS: MULTIVITAMIN (CENTRUM) TABLET PO SCH (08:26)
[2018-10-06] MEDS: CARVEDILOL 3.125 MG TABLET PO SCH ×2 (08:26→22:31)
[2018-10-06] MEDS: PANTOPRAZOLE 40 MG TABLET PO SCH (08:26)
[2018-10-06] MEDS: ASPIRIN EC 81 MG TABLET PO SCH (08:26)
[2018-10-06] MEDS: INSULIN LISPRO 100 UNIT/ML SUBCUT SCH ×4 (08:30→22:34)
[2018-10-06] MEDS: POLYETHYLENE GLYCOL POWDER 17 GM PACK PO SCH (08:34)
[2018-10-06] MEDS: ENOXAPARIN 30 MG/0.3 ML SYRINGE SUBCUT SCH (17:03)
[2018-10-06] MEDS: MAGNESIUM CHLORIDE 64 MG TABLET PO SCH (22:30)
[2018-10-06] MEDS: GABAPENTIN 300 MG CAPSULE PO SCH (22:31)
[2018-10-06] MEDS: rOPINIRole 0.25 MG TABLET PO SCH (22:31)
[2018-10-06] MEDS: traZODone 50 MG TABLET PO SCH (22:32)
[2018-10-07] MEDS: ALBUTEROL/IPRATROPIUM 3 ML NEB RESP TX SCH ×3 (00:19→19:03)
[2018-10-07] MEDS: CEFTAROLINE 400 MG in SODIUM CHLORIDE 0.9% 100 ML IV SCH ×2 (00:31→13:44)
[2018-10-07] MEDS: ACETAMINOPHEN 325 MG TABLET PO PRN (00:31)
[2018-10-07 05:27] LABS: Basophils % 0.7 % (0.0-0.8); Eosinophils # 0.1 10*3/uL (0.0-0.87); Eosinophils % 1.7 % (0.00-10.9); Hemoglobin 8.7 GM/DL (12.0-16.0); Immature Granulocytes % 0.3 %; Immature Granulocytes Absolute 0.01 #; Lymphocytes % 34.8 % (21.3-54.2); Mean Corpuscular Volume 90.3 FL (87-102); Mean Platelet Volume 11.4 FL (9.6-12.0); Neutrophils % 53.5 % (38.7-73.9); Red Blood Count 3.21 MC/CUMM (3.8-5.5); Red Cell Distribution Width 17.1 % (9.3-17.3)
[2018-10-07 05:30] LABS: Platelet Count 75 T/CUMM (130-400)
[2018-10-07 05:40] LABS: Albumin 2.2 G/DL (3.4-5.0); Bilirubin,Total 0.4 MG/DL (0.2-1.0); Calcium 8.7 MG/DL (8.5-10.1); Osmolality,Calculated 286.3 MOS/KG (273-304); Total Protein 5.9 G/DL (6.4-8.3)
[2018-10-07] MEDS: MULTIVITAMIN (CENTRUM) TABLET PO SCH (08:51)
[2018-10-07] MEDS: PANTOPRAZOLE 40 MG TABLET PO SCH (08:51)
[2018-10-07] MEDS: ISOSORBIDE MONONITRATE 30 MG TABLET PO SCH (08:51)
[2018-10-07] MEDS: POLYETHYLENE GLYCOL POWDER 17 GM PACK PO SCH (08:51)
[2018-10-07] MEDS: SPIRONOLACTONE 25 MG TABLET PO SCH (08:52)
[2018-10-07] MEDS: INSULIN LISPRO 100 UNIT/ML SUBCUT SCH ×4 (08:52→21:57)
[2018-10-07] MEDS: CARVEDILOL 3.125 MG TABLET PO SCH ×2 (08:52→21:55)
[2018-10-07] MEDS: DOCUSATE SODIUM 100 MG CAPSULE PO SCH ×2 (08:52→21:55)
[2018-10-07] MEDS: ASPIRIN EC 81 MG TABLET PO SCH (08:52)
[2018-10-07] MEDS: LOSARTAN 25 MG TABLET PO SCH (08:52)
[2018-10-07] MEDS: predniSONE 5 MG TABLET PO SCH (08:52)
[2018-10-07] MEDS: FUROSEMIDE 40 MG TABLET PO SCH ×2 (08:52→17:08)
[2018-10-07] MEDS: ENOXAPARIN 30 MG/0.3 ML SYRINGE SUBCUT SCH (13:44)
[2018-10-07] MEDS: rOPINIRole 0.25 MG TABLET PO SCH (21:54)
[2018-10-07] MEDS: GABAPENTIN 300 MG CAPSULE PO SCH (21:55)
[2018-10-07] MEDS: MAGNESIUM CHLORIDE 64 MG TABLET PO SCH (21:55)
[2018-10-07] MEDS: traZODone 50 MG TABLET PO SCH (21:56)
[2018-10-08] MEDS: CEFTAROLINE 400 MG in SODIUM CHLORIDE 0.9% 100 ML IV SCH (01:20)
[2018-10-08 04:43] LABS: Basophils % 0.3 % (0.0-0.8); Eosinophils % 1.2 % (0.00-10.9); Hematocrit 30.2 VOL% (35.7-47.0); Hemoglobin 9.2 GM/DL (12.0-16.0); Immature Granulocytes % 0.3 %; Immature Granulocytes Absolute 0.01 #; Lymphocytes % 29.2 % (21.3-54.2); Mean Corpuscular HGB Conc 30.5 GM/DL (32-36); Mean Corpuscular Volume 90.1 FL (87-102); Mean Platelet Volume 11.1 FL (9.6-12.0); Monocytes % 8.5 % (1.7-12.7); Neutrophils % 60.5 % (38.7-73.9); Red Blood Count 3.35 MC/CUMM (3.8-5.5); White Blood Count 3.3 T/CUMM (4-12)
[2018-10-08 04:47] LABS: Platelet Count 67 T/CUMM (130-400)
[2018-10-08 05:29] LABS: Hypochromasia 1+; Microcytosis 1+
[2018-10-08 05:30] LABS: Platelet Estimate Decreased; Polychromasia Slight; Target Cells Slight
[2018-10-08 06:47] LABS: Calcium 8.8 MG/DL (8.5-10.1); Osmolality,Calculated 286.3 MOS/KG (273-304)
[2018-10-08] MEDS: ALBUTEROL/IPRATROPIUM 3 ML NEB RESP TX SCH (07:02)
[2018-10-08] MEDS: SPIRONOLACTONE 25 MG TABLET PO SCH (08:36)
[2018-10-08] MEDS: ISOSORBIDE MONONITRATE 30 MG TABLET PO SCH (08:36)
[2018-10-08] MEDS: LOSARTAN 25 MG TABLET PO SCH (08:36)
[2018-10-08] MEDS: PANTOPRAZOLE 40 MG TABLET PO SCH (08:36)
[2018-10-08] MEDS: predniSONE 5 MG TABLET PO SCH (08:36)
[2018-10-08] MEDS: FUROSEMIDE 40 MG TABLET PO SCH (08:36)
[2018-10-08] MEDS: DOCUSATE SODIUM 100 MG CAPSULE PO SCH (08:36)
[2018-10-08] MEDS: ASPIRIN EC 81 MG TABLET PO SCH (08:37)
[2018-10-08] MEDS: CARVEDILOL 3.125 MG TABLET PO SCH (08:37)
[2018-10-08] MEDS: MULTIVITAMIN (CENTRUM) TABLET PO SCH (08:37)
[2018-10-08 08:39] VITALS: BP 142/49
[2018-10-08] MEDS: POLYETHYLENE GLYCOL POWDER 17 GM PACK PO SCH (08:39)
[2018-10-08] MEDS: INSULIN LISPRO 100 UNIT/ML SUBCUT SCH (08:39)
== END 2018-10-08 10:20 | disposition home health service (06) | DRG 603 ==
LOC: N.ED 11:18 → N.EDINP 12:34 → N.2E 13:47
PROVIDERS: ADMIT Family Medicine; ATTEND Family Medicine

== ENCOUNTER 2019-03-08 13:50 | Observation (INO) ==
[2019-03-08 15:54] LABS: Basophils % 0.7 % (0.0-0.8); Eosinophils # 0.1 10*3/uL (0.0-0.87); Eosinophils % 3.3 % (0.00-10.9); Hematocrit 32.7 VOL% (35.7-47.0); Hemoglobin 10.5 GM/DL (12.0-16.0); Immature Granulocytes % 0.4 %; Immature Granulocytes Absolute 0.01 #; Lymphocytes # 0.8 10*3/uL (1.4-4.0); Lymphocytes % 30.5 % (21.3-54.2); Mean Corpuscular HGB Conc 32.1 GM/DL (32-36); Mean Corpuscular Volume 90.6 FL (87-102); Mean Platelet Volume 11.6 FL (9.6-12.0); Monocytes % 12.9 % (1.7-12.7); Neutrophils % 52.2 % (38.7-73.9); Platelet Count 68 T/CUMM (130-400); Red Blood Count 3.61 MC/CUMM (3.8-5.5); Red Cell Distribution Width 15.4 % (9.3-17.3); White Blood Count 2.7 T/CUMM (4-12)
[2019-03-08] MEDS ORDERED: DEXTROSE 50% 25 GM/50 ML VIAL IV PRN (16:13)
[2019-03-08] MEDS ORDERED: ONDANSETRON 4 MG/2 ML VIAL IV PRN (16:13)
[2019-03-08] MEDS ORDERED: ACETAMINOPHEN 325 MG TABLET PO PRN (16:13)
[2019-03-08] MEDS ORDERED: GLUCAGON 1 MG VIAL IM PRN (16:13)
[2019-03-08] MEDS ORDERED: ALBUTEROL/IPRATROPIUM 3 ML NEB RESP TX PRN (16:18)
[2019-03-08] MEDS ORDERED: NITROGLYCERIN SL 0.4 MG TABLET SL PRN (16:18)
[2019-03-08] MEDS ORDERED: POLYETHYLENE GLYCOL POWDER 17 GM PACK PO PRN (16:18)
[2019-03-08 16:48] LABS: Apearance,Urine CLEAR (Clear); Bacteria,Urine Occasional /HPF (Few); Bilirubin,Urine Negative (Negative); Blood, Urine Negative (Negative); Glucose,Urine (UA) Negative (Negative); Hyaline Casts,Urine 5 /LPF (0-3); Ketones,Urine Negative (Negative); Nitrite,Urine Negative (Negative); Protein,Urine Negative; RBC,Urine 1 /HPF (0-4); Squamous Epithelial Cell,Urine Occasional /HPF (0-10); Urine Color Yellow (Yellow); Urine Specific Gravity 1.006 (1.001-1.035); Urine Urobilinogen < 2.0 EU/DL (0.2-1.0); WBC,Urine 2 /HPF (0-6)
[2019-03-08 17:06] LABS: Sedimentation Rate-Westergren 64 MM/HR (0-30)
[2019-03-08] MEDS ORDERED: INFLUENZA VIRUS VACCINE 0.5 ML SYRINGE IM ONE (18:06)
[2019-03-08] MEDS: SODIUM CHLORIDE 0.45% 1,000 ML IV SCH (18:21)
[2019-03-08] MEDS ORDERED: VANCOMYCIN INJ 1,500 MG in SODIUM CHLORIDE 0.9% 500 ML IV ONE (18:30)
[2019-03-08 18:39] LABS: Calcium 8.9 MG/DL (8.5-10.1); Osmolality,Calculated 286.3 MOS/KG (273-304)
[2019-03-08] MEDS: INSULIN LISPRO 100 UNIT/ML SUBCUT SCH ×2 (19:15→22:10)
[2019-03-08] MEDS: MAGNESIUM CHLORIDE 64 MG TABLET PO SCH (22:08)
[2019-03-08] MEDS: traZODone 50 MG TABLET PO SCH (22:08)
[2019-03-08] MEDS: rOPINIRole 1 MG TABLET PO SCH (22:08)
[2019-03-08] MEDS: carvediloL 3.125 MG TABLET PO SCH (22:09)
[2019-03-08] MEDS: GABAPENTIN 300 MG CAPSULE PO SCH (22:09)
[2019-03-08] MEDS: DOCUSATE SODIUM 100 MG CAPSULE PO SCH (22:10)
[2019-03-08] MEDS: cefTRIAXone 1,000 MG in SYRINGE 1 EACH IV SCH (22:11)
[2019-03-09 04:45] LABS: Basophils % 0.4 % (0.0-0.8); Eosinophils # 0.1 10*3/uL (0.0-0.87); Eosinophils % 4.3 % (0.00-10.9); Hematocrit 30.8 VOL% (35.7-47.0); Hemoglobin 9.9 GM/DL (12.0-16.0); Lymphocytes # 0.8 10*3/uL (1.4-4.0); Lymphocytes % 35.2 % (21.3-54.2); Mean Corpuscular HGB Conc 32.1 GM/DL (32-36); Mean Corpuscular Volume 90.3 FL (87-102); Monocytes % 14.2 % (1.7-12.7); Neutrophils % 45.9 % (38.7-73.9); Red Blood Count 3.41 MC/CUMM (3.8-5.5); Red Cell Distribution Width 15.4 % (9.3-17.3); White Blood Count 2.3 T/CUMM (4-12)
[2019-03-09 04:53] LABS: Platelet Count 60 T/CUMM (130-400)
[2019-03-09 05:03] LABS: Calcium 8.3 MG/DL (8.5-10.1); Osmolality,Calculated 282.3 MOS/KG (273-304)
[2019-03-09 05:11] LABS: Hypochromasia 1+; Microcytosis 1+; Ovalocytes Few; Target Cells Slight
[2019-03-09 05:12] LABS: Platelet Estimate Decreased
[2019-03-09] MEDS: INSULIN LISPRO 100 UNIT/ML SUBCUT SCH ×4 (09:18→21:18)
[2019-03-09] MEDS: SPIRONOLACTONE 25 MG TABLET PO SCH (09:18)
[2019-03-09] MEDS: carvediloL 3.125 MG TABLET PO SCH ×2 (09:18→21:18)
[2019-03-09] MEDS: ASPIRIN EC 81 MG TABLET PO SCH (09:18)
[2019-03-09] MEDS: LOSARTAN 25 MG TABLET PO SCH (09:18)
[2019-03-09] MEDS: DOCUSATE SODIUM 100 MG CAPSULE PO SCH ×2 (09:20→21:17)
[2019-03-09] MEDS: PANTOPRAZOLE 40 MG TABLET PO SCH (09:20)
[2019-03-09] MEDS: ISOSORBIDE MONONITRATE 30 MG TABLET PO SCH (09:20)
[2019-03-09] MEDS: FUROSEMIDE 40 MG TABLET PO SCH ×2 (09:20→17:05)
[2019-03-09] MEDS: MULTIVITAMIN (CENTRUM) TABLET PO SCH (09:20)
[2019-03-09] MEDS: GLIMEPIRIDE 2 MG TABLET PO SCH (09:23)
[2019-03-09] MEDS: SODIUM CHLORIDE 0.45% 1,000 ML IV SCH (17:01)
[2019-03-09] MEDS: VANCOMYCIN INJ 1,250 MG in SODIUM CHLORIDE 0.9% 250 ML IV SCH (17:11)
[2019-03-09] MEDS ORDERED: ENOXAPARIN 30 MG/0.3 ML SYRINGE SUBCUT SCH (21:00)
[2019-03-09] MEDS: traZODone 50 MG TABLET PO SCH (21:17)
[2019-03-09] MEDS: rOPINIRole 1 MG TABLET PO SCH (21:17)
[2019-03-09] MEDS: MAGNESIUM CHLORIDE 64 MG TABLET PO SCH (21:18)
[2019-03-09] MEDS: GABAPENTIN 300 MG CAPSULE PO SCH (21:18)
[2019-03-09] MEDS: cefTRIAXone 1,000 MG in SYRINGE 1 EACH IV SCH (21:20)
[2019-03-10] MEDS: ISOSORBIDE MONONITRATE 30 MG TABLET PO SCH (08:59)
[2019-03-10] MEDS: LOSARTAN 25 MG TABLET PO SCH (09:00)
[2019-03-10] MEDS: MULTIVITAMIN (CENTRUM) TABLET PO SCH (09:00)
[2019-03-10] MEDS: ASPIRIN EC 81 MG TABLET PO SCH (09:01)
[2019-03-10] MEDS: DOCUSATE SODIUM 100 MG CAPSULE PO SCH ×3 (09:01→22:02)
[2019-03-10] MEDS: FUROSEMIDE 40 MG TABLET PO SCH ×2 (09:01→15:14)
[2019-03-10] MEDS: GLIMEPIRIDE 2 MG TABLET PO SCH (09:01)
[2019-03-10] MEDS: PANTOPRAZOLE 40 MG TABLET PO SCH (09:01)
[2019-03-10] MEDS: carvediloL 3.125 MG TABLET PO SCH ×2 (09:01→22:06)
[2019-03-10] MEDS: SPIRONOLACTONE 25 MG TABLET PO SCH (09:01)
[2019-03-10] MEDS: INSULIN LISPRO 100 UNIT/ML SUBCUT SCH ×4 (09:02→21:54)
[2019-03-10] MEDS: SODIUM CHLORIDE 0.45% 1,000 ML IV SCH (16:16)
[2019-03-10] MEDS: VANCOMYCIN INJ 1,250 MG in SODIUM CHLORIDE 0.9% 250 ML IV SCH (17:42)
[2019-03-10] MEDS: rOPINIRole 1 MG TABLET PO SCH (21:53)
[2019-03-10] MEDS: traZODone 50 MG TABLET PO SCH (21:54)
[2019-03-10] MEDS: MAGNESIUM CHLORIDE 64 MG TABLET PO SCH (21:54)
[2019-03-10] MEDS: GABAPENTIN 300 MG CAPSULE PO SCH (21:54)
[2019-03-10] MEDS: cefTRIAXone 1,000 MG in SYRINGE 1 EACH IV SCH (21:55)
[2019-03-11] MEDS: DOCUSATE SODIUM 100 MG CAPSULE PO SCH ×2 (08:46→20:38)
[2019-03-11] MEDS: ISOSORBIDE MONONITRATE 30 MG TABLET PO SCH (08:46)
[2019-03-11] MEDS: carvediloL 3.125 MG TABLET PO SCH ×2 (08:46→21:05)
[2019-03-11] MEDS: LOSARTAN 25 MG TABLET PO SCH (08:47)
[2019-03-11] MEDS: FUROSEMIDE 40 MG TABLET PO SCH ×2 (08:47→16:47)
[2019-03-11] MEDS: MULTIVITAMIN (CENTRUM) TABLET PO SCH (08:47)
[2019-03-11] MEDS: PANTOPRAZOLE 40 MG TABLET PO SCH (08:47)
[2019-03-11] MEDS: ASPIRIN EC 81 MG TABLET PO SCH (08:47)
[2019-03-11] MEDS: GLIMEPIRIDE 2 MG TABLET PO SCH (08:47)
[2019-03-11] MEDS: SPIRONOLACTONE 25 MG TABLET PO SCH (08:47)
[2019-03-11] MEDS: INSULIN LISPRO 100 UNIT/ML SUBCUT SCH ×4 (09:41→21:05)
[2019-03-11] MEDS ORDERED: SKIN HEALING OINT (AQUAPHOR) 50 GM TUBE TOP ONE (13:47)
[2019-03-11] MEDS: SKIN HEALING OINT (AQUAPHOR) 50 GM TUBE TOP SCH (16:47)
[2019-03-11] MEDS: SODIUM CHLORIDE 0.45% 1,000 ML IV SCH (18:00)
[2019-03-11] MEDS: cefTRIAXone 1,000 MG in SYRINGE 1 EACH IV SCH (20:38)
[2019-03-11] MEDS: rOPINIRole 1 MG TABLET PO SCH (20:38)
[2019-03-11] MEDS: GABAPENTIN 300 MG CAPSULE PO SCH (20:38)
[2019-03-11] MEDS: MAGNESIUM CHLORIDE 64 MG TABLET PO SCH (20:38)
[2019-03-11] MEDS: traZODone 50 MG TABLET PO SCH (20:38)
[2019-03-12 07:44] VITALS: BP 117/48
[2019-03-12] MEDS: LOSARTAN 25 MG TABLET PO SCH (08:44)
[2019-03-12] MEDS: PANTOPRAZOLE 40 MG TABLET PO SCH (08:44)
[2019-03-12] MEDS: carvediloL 3.125 MG TABLET PO SCH (08:44)
[2019-03-12] MEDS: DOCUSATE SODIUM 100 MG CAPSULE PO SCH (08:44)
[2019-03-12] MEDS: ISOSORBIDE MONONITRATE 30 MG TABLET PO SCH (08:44)
[2019-03-12] MEDS: MULTIVITAMIN (CENTRUM) TABLET PO SCH (08:44)
[2019-03-12] MEDS: ASPIRIN EC 81 MG TABLET PO SCH (08:44)
[2019-03-12] MEDS: GLIMEPIRIDE 2 MG TABLET PO SCH (08:44)
[2019-03-12] MEDS: FUROSEMIDE 40 MG TABLET PO SCH (08:45)
[2019-03-12] MEDS: SPIRONOLACTONE 25 MG TABLET PO SCH (08:45)
[2019-03-12] MEDS: cefTRIAXone 1,000 MG in SYRINGE 1 EACH IV SCH (08:46)
[2019-03-12] MEDS: SKIN HEALING OINT (AQUAPHOR) 50 GM TUBE TOP SCH (08:47)
[2019-03-12] MEDS: INSULIN LISPRO 100 UNIT/ML SUBCUT SCH (09:51)
== END 2019-03-12 09:47 ==
LOC: EDUNIT# → EDBD → N.EDINP 13:50 → N.ED 13:50 → N.2E 16:40
PROVIDERS: ADMIT Family Medicine; ATTEND Family Medicine

== ENCOUNTER 2019-05-31 00:21 | Inpatient (IN) ==
[2019-05-31] MEDS ORDERED: PANTOPRAZOLE 40 MG VIAL IV STA (00:40)
[2019-05-31] MEDS ORDERED: ONDANSETRON 4 MG/2 ML VIAL IV STA (00:40)
[2019-05-31] MEDS ORDERED: BUMETANIDE 1 MG/4 ML VIAL IV STA (00:44)
[2019-05-31 02:25] LABS: Basophils % 0.6 % (0.0-0.8); Eosinophils # 0.2 10*3/uL (0.0-0.87); Eosinophils % 4.8 % (0.00-10.9); Hematocrit 31.5 VOL% (35.7-47.0); Immature Granulocytes % 0.6 %; Immature Granulocytes Absolute 0.02 #; Lymphocytes # 0.7 10*3/uL (1.4-4.0); Lymphocytes % 23.6 % (21.3-54.2); Mean Corpuscular HGB Conc 31.7 GM/DL (32-36); Mean Corpuscular Volume 92.9 FL (87-102); Mean Platelet Volume 10.9 FL (9.6-12.0); Monocytes % 10.9 % (1.7-12.7); Neutrophils % 59.5 % (38.7-73.9); Red Blood Count 3.39 MC/CUMM (3.8-5.5); Red Cell Distribution Width 15.6 % (9.3-17.3); White Blood Count 3.1 T/CUMM (4-12)
[2019-05-31 02:26] LABS: Platelet Count 60 T/CUMM (130-400)
[2019-05-31 02:30] LABS: INR 1.1; PT Patient Result 12.3 SECS (9.6-12.2)
[2019-05-31 02:58] LABS: Alanine Aminotransferase 27 U/L (13-56); Albumin 2.9 G/DL (3.4-5.0); Alkaline Phosphatase 136 U/L (45-117); Amylase 38 U/L (25-115); Aspartate Amino Transferase 39 U/L (0-37); Blood Urea Nitrogen 40 MG/DL (7-18); Calcium 9.1 MG/DL (8.5-10.1); Estimated Glom Filtration Rate 42 ML/MIN; Glucose 127 MG/DL (74-106); Total Protein 7.3 G/DL (6.4-8.3); Troponin I < 0.015 NG/ML (0.00-0.045)
[2019-05-31 03:09] LABS: Hypochromasia 1+; Ovalocytes 1+; Platelet Estimate Decreased
[2019-05-31] MEDS ORDERED: GLUCAGON 1 MG VIAL IM PRN (05:14)
[2019-05-31] MEDS ORDERED: SODIUM CHLORIDE 0.9% 1,000 ML IV SCH (05:14)
[2019-05-31] MEDS ORDERED: DEXTROSE 50% 25 GM/50 ML VIAL IV PRN (05:14)
[2019-05-31] MEDS: INSULIN REGULAR 100 UNIT/ML SUBCUT SCH ×4 (05:57→23:52)
[2019-05-31 06:05] LABS: Apearance,Urine CLEAR (Clear); Bacteria,Urine Occasional /HPF (Few); Bilirubin,Urine Negative (Negative); Blood, Urine Small mg/dL (Negative); Glucose,Urine (UA) Negative (Negative); Hyaline Casts,Urine 10 /LPF (0-3); Ketones,Urine Negative (Negative); Mucus,Urine Occasional /LPF (Occasional); Nitrite,Urine Negative (Negative); Protein,Urine Negative; RBC,Urine 8 /HPF (0-4); Squamous Epithelial Cell,Urine Occasional /HPF (0-10); Urine Color Straw (Yellow); Urine Specific Gravity 1.006 (1.001-1.035); Urine Urobilinogen < 2.0 EU/DL (0.2-1.0); WBC,Urine 1 /HPF (0-6)
[2019-05-31 06:38] LABS: Basophils % 0.4 % (0.0-0.8); Eosinophils # 0.2 10*3/uL (0.0-0.87); Eosinophils % 5.7 % (0.00-10.9); Hematocrit 30.2 VOL% (35.7-47.0); Hemoglobin 9.5 GM/DL (12.0-16.0); Lymphocytes # 0.8 10*3/uL (1.4-4.0); Lymphocytes % 28.3 % (21.3-54.2); Mean Corpuscular HGB Conc 31.5 GM/DL (32-36); Mean Corpuscular Volume 93.5 FL (87-102); Mean Platelet Volume 11.3 FL (9.6-12.0); Neutrophils % 53.6 % (38.7-73.9); Red Blood Count 3.23 MC/CUMM (3.8-5.5); Red Cell Distribution Width 15.4 % (9.3-17.3); White Blood Count 2.8 T/CUMM (4-12)
[2019-05-31 06:47] LABS: Platelet Count 59 T/CUMM (130-400)
[2019-05-31 07:03] LABS: Hypochromasia 1+; Platelet Estimate Decreased
[2019-05-31] MEDS: ALBUTEROL/IPRATROPIUM 3 ML NEB RESP TX SCH ×5 (07:42→22:35)
[2019-05-31] MEDS: BUMETANIDE 1 MG/4 ML VIAL IV SCH ×2 (09:13→17:05)
[2019-05-31] MEDS: PANTOPRAZOLE 40 MG VIAL IV SCH (09:14)
[2019-05-31] MEDS: DOCUSATE SODIUM 100 MG CAPSULE PO SCH ×2 (09:25→21:47)
[2019-05-31] MEDS: ACETAMINOPHEN 325 MG TABLET PO PRN (10:25)
[2019-05-31] MEDS ORDERED: OCTREOTIDE 100 MCG/ML SYRINGE IV ONE (13:00)
[2019-05-31] MEDS: OCTREOTIDE 500 MCG in SODIUM CHLORIDE 0.9% 100 ML IV SCH ×2 (14:03→23:42)
[2019-06-01] MEDS: ALBUTEROL/IPRATROPIUM 3 ML NEB RESP TX SCH ×5 (02:35→19:56)
[2019-06-01] MEDS: OCTREOTIDE 500 MCG in SODIUM CHLORIDE 0.9% 100 ML IV SCH ×2 (04:07→14:44)
[2019-06-01 04:37] LABS: Albumin 2.5 G/DL (3.4-5.0); Bilirubin,Total 1.2 MG/DL (0.2-1.0); Calcium 8.6 MG/DL (8.5-10.1); Total Protein 6.7 G/DL (6.4-8.3)
[2019-06-01] MEDS: INSULIN REGULAR 100 UNIT/ML SUBCUT SCH ×3 (05:32→18:05)
[2019-06-01] MEDS: DOCUSATE SODIUM 100 MG CAPSULE PO SCH ×2 (08:45→21:05)
[2019-06-01] MEDS: ONDANSETRON 4 MG/2 ML VIAL IV PRN ×2 (08:46→20:20)
[2019-06-01] MEDS: PANTOPRAZOLE 40 MG VIAL IV SCH (08:50)
[2019-06-01] MEDS: BUMETANIDE 1 MG/4 ML VIAL IV SCH ×2 (08:51→16:47)
[2019-06-01 15:17] LABS: Basophils % 0.4 % (0.0-0.8); Eosinophils # 0.1 10*3/uL (0.0-0.87); Eosinophils % 1.5 % (0.00-10.9); Hematocrit 31.9 VOL% (35.7-47.0); Immature Granulocytes % 0.2 %; Immature Granulocytes Absolute 0.01 #; Lymphocytes # 0.7 10*3/uL (1.4-4.0); Lymphocytes % 15.5 % (21.3-54.2); Mean Corpuscular HGB Conc 31.3 GM/DL (32-36); Mean Corpuscular Volume 94.7 FL (87-102); Mean Platelet Volume 11.7 FL (9.6-12.0); Monocytes % 10.5 % (1.7-12.7); Neutrophils % 71.9 % (38.7-73.9); Platelet Count 59 T/CUMM (130-400); Red Blood Count 3.37 MC/CUMM (3.8-5.5); Red Cell Distribution Width 15.8 % (9.3-17.3); White Blood Count 4.8 T/CUMM (4-12)
[2019-06-01] MEDS ORDERED: NITROGLYCERIN SL 0.4 MG TABLET SL PRN (21:12)
[2019-06-01] MEDS ORDERED: POLYETHYLENE GLYCOL POWDER 17 GM PACK PO PRN (21:12)
[2019-06-01] MEDS ORDERED: DOCUSATE SODIUM 100 MG CAPSULE PO PRN (21:12)
[2019-06-02] MEDS: OCTREOTIDE 500 MCG in SODIUM CHLORIDE 0.9% 100 ML IV SCH ×2 (00:20→10:11)
[2019-06-02] MEDS: INSULIN REGULAR 100 UNIT/ML SUBCUT SCH ×4 (00:21→19:19)
[2019-06-02] MEDS: ALBUTEROL/IPRATROPIUM 3 ML NEB RESP TX SCH ×6 (01:18→18:45)
[2019-06-02 06:57] LABS: Basophils % 0.3 % (0.0-0.8); Eosinophils # 0.1 10*3/uL (0.0-0.87); Eosinophils % 0.8 % (0.00-10.9); Hematocrit 31.9 VOL% (35.7-47.0); Immature Granulocytes % 0.3 %; Immature Granulocytes Absolute 0.02 #; Lymphocytes # 0.4 10*3/uL (1.4-4.0); Lymphocytes % 6.6 % (21.3-54.2); Mean Corpuscular HGB Conc 31.3 GM/DL (32-36); Mean Corpuscular Volume 94.7 FL (87-102); Monocytes % 7.5 % (1.7-12.7); Neutrophils % 84.5 % (38.7-73.9); Platelet Count 74 T/CUMM (130-400); Red Blood Count 3.37 MC/CUMM (3.8-5.5); Red Cell Distribution Width 15.7 % (9.3-17.3); White Blood Count 6.4 T/CUMM (4-12)
[2019-06-02 07:21] LABS: Albumin 2.8 G/DL (3.4-5.0); Bilirubin,Total 1.1 MG/DL (0.2-1.0); Calcium 8.7 MG/DL (8.5-10.1); Hypochromasia 1+; Macrocytosis Slight; Osmolality,Calculated 284.8 MOS/KG (273-304); Total Protein 7.5 G/DL (6.4-8.3)
[2019-06-02 07:22] LABS: Platelet Estimate Decreased; Polychromasia Slight
[2019-06-02] MEDS: DOCUSATE SODIUM 100 MG CAPSULE PO SCH ×2 (10:12→21:45)
[2019-06-02] MEDS: carvediloL 3.125 MG TABLET PO SCH ×2 (10:12→16:26)
[2019-06-02] MEDS: PANTOPRAZOLE 40 MG VIAL IV SCH (10:12)
[2019-06-02] MEDS: BUMETANIDE 1 MG/4 ML VIAL IV SCH ×2 (10:13→16:26)
[2019-06-02] MEDS ORDERED: SODIUM PHOSPHATE ENEMA 133 ML BOTTLE RECTAL ONE (16:01)
[2019-06-02] MEDS: ONDANSETRON 4 MG/2 ML VIAL IV PRN (19:14)
[2019-06-02] MEDS: MAGNESIUM CHLORIDE 64 MG TABLET PO SCH (21:44)
[2019-06-02] MEDS: traZODone 50 MG TABLET PO SCH (21:45)
[2019-06-03] MEDS: ALBUTEROL/IPRATROPIUM 3 ML NEB RESP TX SCH ×7 (00:35→23:39)
[2019-06-03] MEDS: INSULIN REGULAR 100 UNIT/ML SUBCUT SCH ×4 (00:50→18:51)
[2019-06-03] MEDS: OCTREOTIDE 500 MCG in SODIUM CHLORIDE 0.9% 100 ML IV SCH ×3 (05:32→16:03)
[2019-06-03] MEDS: BUMETANIDE 1 MG/4 ML VIAL IV SCH ×2 (08:50→16:20)
[2019-06-03] MEDS ORDERED: ETOMIDATE 20 MG/10 ML VIAL IV ONE (09:00)
[2019-06-03] MEDS ORDERED: LIDOCAINE 2% 5 ML VIAL ONE (09:00)
[2019-06-03] MEDS: PANTOPRAZOLE 40 MG VIAL IV SCH (10:09)
[2019-06-03] MEDS: LACTATED RINGERS 1,000 ML IV SCH (12:49)
[2019-06-03] MEDS: DOCUSATE SODIUM 100 MG CAPSULE PO SCH ×2 (13:38→21:19)
[2019-06-03] MEDS: carvediloL 3.125 MG TABLET PO SCH ×2 (13:40→16:20)
[2019-06-03] MEDS: MAGNESIUM CHLORIDE 64 MG TABLET PO SCH (21:19)
[2019-06-03] MEDS: traZODone 50 MG TABLET PO SCH (21:19)
[2019-06-04] MEDS: INSULIN REGULAR 100 UNIT/ML SUBCUT SCH ×4 (01:22→18:37)
[2019-06-04] MEDS: ALBUTEROL/IPRATROPIUM 3 ML NEB RESP TX SCH ×6 (02:59→22:44)
[2019-06-04 06:50] LABS: Basophils % 0.5 % (0.0-0.8); Eosinophils # 0.2 10*3/uL (0.0-0.87); Eosinophils % 4.5 % (0.00-10.9); Hematocrit 31.4 VOL% (35.7-47.0); Hemoglobin 9.7 GM/DL (12.0-16.0); Immature Granulocytes % 0.3 %; Immature Granulocytes Absolute 0.01 #; Lymphocytes # 0.7 10*3/uL (1.4-4.0); Lymphocytes % 18.4 % (21.3-54.2); Mean Corpuscular HGB Conc 30.9 GM/DL (32-36); Mean Corpuscular Volume 95.7 FL (87-102); Mean Platelet Volume 11.2 FL (9.6-12.0); Monocytes % 11.3 % (1.7-12.7); Red Blood Count 3.28 MC/CUMM (3.8-5.5); Red Cell Distribution Width 15.6 % (9.3-17.3); White Blood Count 3.8 T/CUMM (4-12)
[2019-06-04 06:51] LABS: Platelet Count 68 T/CUMM (130-400)
[2019-06-04 07:02] LABS: Calcium 8.5 MG/DL (8.5-10.1); Osmolality,Calculated 289.3 MOS/KG (273-304)
[2019-06-04 07:08] LABS: Hypochromasia 1+; Macrocytosis Slight; Ovalocytes Slight; Platelet Estimate Decreased
[2019-06-04] MEDS: carvediloL 3.125 MG TABLET PO SCH ×2 (08:45→17:48)
[2019-06-04] MEDS: DOCUSATE SODIUM 100 MG CAPSULE PO SCH ×2 (08:45→22:37)
[2019-06-04] MEDS: metOLazone 5 MG TABLET PO SCH (08:45)
[2019-06-04] MEDS: PANTOPRAZOLE 40 MG VIAL IV SCH (08:46)
[2019-06-04] MEDS: BUMETANIDE 1 MG/4 ML VIAL IV SCH ×2 (08:47→17:45)
[2019-06-04] MEDS: LACTATED RINGERS 1,000 ML IV SCH (14:19)
[2019-06-04] MEDS: traZODone 50 MG TABLET PO SCH (22:37)
[2019-06-04] MEDS: MAGNESIUM CHLORIDE 64 MG TABLET PO SCH (22:37)
[2019-06-05] MEDS: ALBUTEROL/IPRATROPIUM 3 ML NEB RESP TX SCH ×6 (03:08→23:05)
[2019-06-05] MEDS: INSULIN REGULAR 100 UNIT/ML SUBCUT SCH ×3 (04:44→13:09)
[2019-06-05 08:28] LABS: Basophils % 0.2 % (0.0-0.8); Eosinophils # 0.1 10*3/uL (0.0-0.87); Eosinophils % 3.2 % (0.00-10.9); Hematocrit 31.8 VOL% (35.7-47.0); Hemoglobin 9.7 GM/DL (12.0-16.0); Immature Granulocytes % 0.2 %; Immature Granulocytes Absolute 0.01 #; Lymphocytes # 0.8 10*3/uL (1.4-4.0); Lymphocytes % 16.9 % (21.3-54.2); Mean Corpuscular HGB Conc 30.5 GM/DL (32-36); Mean Corpuscular Volume 96.1 FL (87-102); Mean Platelet Volume 10.5 FL (9.6-12.0); Monocytes % 10.8 % (1.7-12.7); Neutrophils % 68.7 % (38.7-73.9); Platelet Count 74 T/CUMM (130-400); Red Blood Count 3.31 MC/CUMM (3.8-5.5); Red Cell Distribution Width 15.5 % (9.3-17.3); White Blood Count 4.4 T/CUMM (4-12)
[2019-06-05 08:44] LABS: Calcium 8.5 MG/DL (8.5-10.1); Osmolality,Calculated 288.4 MOS/KG (273-304)
[2019-06-05 08:45] LABS: Hypochromasia 1+
[2019-06-05 08:46] LABS: Macrocytosis Slight; Ovalocytes Slight; Platelet Estimate Decreased
[2019-06-05] MEDS: ceFAZolin 1,000 MG in SYRINGE 1 EACH IV SCH ×2 (09:00→17:13)
[2019-06-05] MEDS: DOCUSATE SODIUM 100 MG CAPSULE PO SCH ×2 (10:14→21:44)
[2019-06-05] MEDS: metOLazone 5 MG TABLET PO SCH (10:14)
[2019-06-05] MEDS: carvediloL 3.125 MG TABLET PO SCH ×2 (10:14→17:10)
[2019-06-05] MEDS: LACTATED RINGERS 1,000 ML IV SCH (13:31)
[2019-06-05] MEDS: BUMETANIDE 1 MG/4 ML VIAL IV SCH ×2 (13:31→17:10)
[2019-06-05] MEDS: PANTOPRAZOLE 40 MG VIAL IV SCH (17:15)
[2019-06-05] MEDS: traZODone 50 MG TABLET PO SCH (21:43)
[2019-06-05] MEDS: MAGNESIUM CHLORIDE 64 MG TABLET PO SCH (21:44)
[2019-06-06] MEDS: INSULIN REGULAR 100 UNIT/ML SUBCUT SCH ×5 (01:30→18:18)
[2019-06-06] MEDS: ALBUTEROL/IPRATROPIUM 3 ML NEB RESP TX SCH ×6 (03:20→23:57)
[2019-06-06] MEDS: ceFAZolin 1,000 MG in SYRINGE 1 EACH IV SCH ×3 (05:45→21:50)
[2019-06-06] MEDS: BUMETANIDE 1 MG/4 ML VIAL IV SCH ×2 (09:51→15:41)
[2019-06-06] MEDS: carvediloL 3.125 MG TABLET PO SCH ×2 (09:51→16:27)
[2019-06-06] MEDS: DOCUSATE SODIUM 100 MG CAPSULE PO SCH ×2 (09:51→21:51)
[2019-06-06] MEDS: metOLazone 5 MG TABLET PO SCH (09:51)
[2019-06-06] MEDS: PANTOPRAZOLE 40 MG VIAL IV SCH (09:52)
[2019-06-06] MEDS: guaiFENesin 200 MG/10 ML UDCUP PO PRN (10:11)
[2019-06-06] MEDS: LACTATED RINGERS 1,000 ML IV SCH (15:40)
[2019-06-06] MEDS: traZODone 50 MG TABLET PO SCH (21:51)
[2019-06-06] MEDS: MAGNESIUM CHLORIDE 64 MG TABLET PO SCH (21:51)
[2019-06-07] MEDS: INSULIN REGULAR 100 UNIT/ML SUBCUT SCH ×4 (00:30→18:33)
[2019-06-07] MEDS: ALBUTEROL/IPRATROPIUM 3 ML NEB RESP TX SCH ×6 (04:04→23:15)
[2019-06-07] MEDS: ceFAZolin 1,000 MG in SYRINGE 1 EACH IV SCH ×3 (06:57→20:54)
[2019-06-07] MEDS: DOCUSATE SODIUM 100 MG CAPSULE PO SCH ×2 (08:42→20:32)
[2019-06-07] MEDS: metOLazone 5 MG TABLET PO SCH (08:42)
[2019-06-07] MEDS: BUMETANIDE 1 MG/4 ML VIAL IV SCH ×2 (08:43→16:40)
[2019-06-07] MEDS: carvediloL 3.125 MG TABLET PO SCH ×2 (08:43→16:41)
[2019-06-07] MEDS: PANTOPRAZOLE 40 MG VIAL IV SCH (08:43)
[2019-06-07] MEDS: LACTATED RINGERS 1,000 ML IV SCH (12:34)
[2019-06-07] MEDS: MAGNESIUM CHLORIDE 64 MG TABLET PO SCH (20:32)
[2019-06-07] MEDS: traZODone 50 MG TABLET PO SCH (20:32)
[2019-06-07] MEDS: guaiFENesin 200 MG/10 ML UDCUP PO PRN (20:54)
[2019-06-08] MEDS: INSULIN REGULAR 100 UNIT/ML SUBCUT SCH ×4 (00:01→18:38)
[2019-06-08] MEDS: ALBUTEROL/IPRATROPIUM 3 ML NEB RESP TX SCH ×6 (03:10→23:41)
[2019-06-08] MEDS: ceFAZolin 1,000 MG in SYRINGE 1 EACH IV SCH ×3 (05:22→22:12)
[2019-06-08] MEDS: carvediloL 3.125 MG TABLET PO SCH ×2 (09:11→16:57)
[2019-06-08] MEDS: DOCUSATE SODIUM 100 MG CAPSULE PO SCH ×2 (09:11→20:44)
[2019-06-08] MEDS: metOLazone 5 MG TABLET PO SCH (09:11)
[2019-06-08] MEDS: BUMETANIDE 1 MG/4 ML VIAL IV SCH ×2 (09:12→16:58)
[2019-06-08] MEDS: PANTOPRAZOLE 40 MG VIAL IV SCH (09:12)
[2019-06-08 09:23] LABS: Calcium 8.5 MG/DL (8.5-10.1); Osmolality,Calculated 284.4 MOS/KG (273-304)
[2019-06-08] MEDS: POTASSIUM CHLORIDE 20 MEQ TABLET PO PRN ×4 (09:55→16:57)
[2019-06-08] MEDS: LACTATED RINGERS 1,000 ML IV SCH (13:02)
[2019-06-08] MEDS: traZODone 50 MG TABLET PO SCH (20:44)
[2019-06-08] MEDS: MAGNESIUM CHLORIDE 64 MG TABLET PO SCH (20:44)
[2019-06-08] MEDS: guaiFENesin 200 MG/10 ML UDCUP PO PRN (20:44)
[2019-06-08] MEDS: ACETAMINOPHEN 325 MG TABLET PO PRN (20:45)
[2019-06-09] MEDS: INSULIN REGULAR 100 UNIT/ML SUBCUT SCH ×5 (00:18→23:53)
[2019-06-09] MEDS: POTASSIUM CHLORIDE 20 MEQ TABLET PO PRN ×3 (00:18→04:35)
[2019-06-09] MEDS: ALBUTEROL/IPRATROPIUM 3 ML NEB RESP TX SCH ×5 (04:33→21:17)
[2019-06-09] MEDS: ceFAZolin 1,000 MG in SYRINGE 1 EACH IV SCH ×3 (05:00→21:15)
[2019-06-09] MEDS: DOCUSATE SODIUM 100 MG CAPSULE PO SCH ×2 (08:46→21:03)
[2019-06-09] MEDS: carvediloL 3.125 MG TABLET PO SCH ×2 (08:46→16:48)
[2019-06-09] MEDS: metOLazone 5 MG TABLET PO SCH (08:46)
[2019-06-09] MEDS: BUMETANIDE 1 MG/4 ML VIAL IV SCH ×2 (08:47→16:48)
[2019-06-09] MEDS: PANTOPRAZOLE 40 MG VIAL IV SCH (08:48)
[2019-06-09] MEDS ORDERED: POTASSIUM CHLORIDE 20 MEQ/15 ML UDCUP PO ONE (09:08)
[2019-06-09] MEDS ORDERED: BUMETANIDE 1 MG/4 ML VIAL IV ONE (09:37)
[2019-06-09 11:19] LABS: Calcium 8.9 MG/DL (8.5-10.1); Osmolality,Calculated 282.8 MOS/KG (273-304)
[2019-06-09] MEDS: LACTATED RINGERS 1,000 ML IV SCH (13:33)
[2019-06-09] MEDS: traZODone 50 MG TABLET PO SCH (21:03)
[2019-06-09] MEDS: MAGNESIUM CHLORIDE 64 MG TABLET PO SCH (21:04)
[2019-06-10] MEDS: ALBUTEROL/IPRATROPIUM 3 ML NEB RESP TX SCH ×5 (00:26→14:45)
[2019-06-10] MEDS: ceFAZolin 1,000 MG in SYRINGE 1 EACH IV SCH (05:57)
[2019-06-10] MEDS: INSULIN REGULAR 100 UNIT/ML SUBCUT SCH ×2 (06:25→12:38)
[2019-06-10] MEDS: BUMETANIDE 1 MG/4 ML VIAL IV SCH (08:39)
[2019-06-10] MEDS: metOLazone 5 MG TABLET PO SCH (08:41)
[2019-06-10] MEDS: DOCUSATE SODIUM 100 MG CAPSULE PO SCH (08:41)
[2019-06-10] MEDS: carvediloL 3.125 MG TABLET PO SCH (08:41)
[2019-06-10] MEDS: PANTOPRAZOLE 40 MG VIAL IV SCH (08:42)
[2019-06-10 12:15] VITALS: BP 145/61
[2019-06-10] MEDS: LACTATED RINGERS 1,000 ML IV SCH (12:28)
== END 2019-06-10 15:33 | disposition home or self-care (01) | DRG 441 ==
LOC: EDUNIT# → EDBD → N.ED 00:21 → N.EDINP 03:59 → N.TELES 04:35
PROVIDERS: ADMIT Family Medicine; ATTEND Family Medicine